=== PATIENT | male | born 1950 | race Caucasian/White ===

== ENCOUNTER 2018-12-18 05:30 | Day surgery (SDC) | payer MEDICARE, OTHER, SELFPAY ==
--- NOTE | 2018-11-21 09:35 | PCM.HP.BLA ---
History and Physical DATE OF SURGERY: 12/18/2018 SCHEDULED PROCEDURE: right knee arthroscopy with partial medial and lateral meniscectomy and chondroplasty HISTORY OF PRESENT ILLNESS: This is a 68-year-old male who has been having ongoing pain in his right knee since August 2018. At that time patient was stepping off backwards from a ladder when he landed awkwardly on the right knee. Since then he has had pain in the right knee with mechanical symptoms including locking and catching sensation. Patient denies previous problems in the right knee prior to the injury. Patient states his pain can reach as high as a 5/10. He is currently using a cane for ambulatory assistance. Patient has been through formal physical therapy and previous corticosteroid injection with no relief in symptoms. He states the corticosteroid injection only helped temporarily. Patient has a medical history pertinent for hypertension and type 2 diabetes mellitus. He denies any recent chest pain, shortness of breath, fevers chills, recent infections. After failing conservative measures the patient would like to proceed with a right knee arthroscopy with partial medial and lateral meniscectomy with chondroplasty. We are obtaining surgical clearance from patient's primary care physician. REVIEW OF SYSTEMS: ROS: Const: Reports weight change, but denies change in appetite and fever. CV: Denies chest pain, heart murmur and irregular heartbeat. Resp: Denies cough, pneumonia, shortness of breath, tuberculosis and wheezing. GI: Denies constipation, diarrhea, heartburn, nausea, rectal itching, bloody stools and vomiting. : Denies incontinence. Musculo: Reports pain, trouble walking and weakness, but denies gait disturbance and leg swelling. Skin: Denies Raynaud's, history of shingles and tattoo. Neuro: Denies ambulatory dysfunction, dizziness, numbness/tingling and tremor. Psych: Denies anxiety, insomnia and stress. Jairo/Lymph: Denies anemia, bleeding/bruising tendency and past transfusion. Reviewed and updated. PAST MEDICAL HISTORY: Advance Care Plan: No Advance Directives Effective Date: 10/10/2018 PMH: Medical Problems: Diabetes, High Blood Pressure, Hypercholesterolemia, Sleep Apnea Accidents: None Surgical Hx: None Anesthesia Complications: None Assistive Devices: Glasses, Cane, Cpap Reviewed and updated. SOCIAL HISTORY: SH: Marital: .Occupation: Retired.Work Status: Retired.Hand Dominance: Right-handed. Personal Habits: Cigarette Use: Never Smoked Cigarettes.Smokeless Tobacco: Never Used Smokeless Tobacco.E-Cigarette Use: Never used.Alcohol: Occasionally.Drug Use: Denies Use.Enjoy Exercising: Never Exercises. Reviewed, no changes. VITALS: Ht: 67.5 Wt: 281lb Wt k.462 BMI: 43.4 BP: 130/74 Pulse: 59 Resp: 28 T: 98.0 T: 36.7C ALLERGIES: No Known Drug Allergy MEDICATIONS: Ultram 50 mg 1-2 by mouth q6 hour as needed pain, Amlodipine Besylate/Benazepril Hydrochloride 5-40 mg 1 cap PO daily, Carvedilol 12.5 mg 1 tab PO daily, Dicyclomine HCL 20 mg 1 cap PO bid, Hydrochlorothiazide 12.5 mg 1 tab PO daily, Metformin HCL 500 mg 1 tab PO daily, Aspirin 81 mg 1 tab PO every other day, Multi Vitamin Daily 1 tab PO daily, Potassium 99 mg 1 tab by mouth daily, Calcium 1200 6372-5500 MG-Unit 1 tab by mouth daily, Vitamin D3 1000 Unit 1 by mouth every day, Vitamin C W/Vitamin E 500-400 MG-Unit 1 tab by mouth daily PRE-OP EXAM: General appearance:NORMAL Other: Eyes: Conjunctivae and lids: NORMAL Pupils: ERR Ears, Nose, Mouth, and Throat: NORMAL Other: Inspection of lips, teeth and gums: NORMAL Other: Neck: Examination of neck: no masses noted. Respiratory: Assessment of respiratory effort: NORMAL Other: Auscultation of lungs: clear to auscultation no wheezes, rhonchi or rales. Cardiovascular: Auscultation of heart: regular rate and rhythm, no murmurs, gallops or rubs. Gastrointestinal: Exam of abdomen: soft, nontender, nondistended bowel sounds present. PHYSICAL EXAMINATION: On exam of the right knee is cool to touch without erythema or signs of infection. There is mild effusion. Patient has primary pain over the medial right knee. Tenderness to palpation along the medial lateral joint line. Range of motion right knee: 0 of extension 115 flexion. Patient has positive Daily's examination which does reproduce his pain. Varus/valgus stress test, negative anterior/posterior drawer. Patient does walk with a limping gait. Sensation intact to light touch. Neurovascularly intact. IMAGING STUDIES: MRI was obtained at [facility] on November 11, 2018 which did not reveal any acute finding for fracture. Patient does have medial meniscus tear and lateral meniscus tear. He does have chondromalacia of the medial compartment with erosion appreciated. There is chondral malacia in the patellofemoral compartment. MRI was discussed and reviewed with Dr. Bradford Guzman. X-rays of the right knee were obtained on October 10, 2018 which does show medial joint space narrowing with osteophyte formation consistent with moderate osteoarthritis on the right knee. IMPRESSION: 1. Right knee pain with medial lateral meniscus tear 2. Right knee osteoarthritis 3. Type 2 diabetes mellitus 4. Hypertension 5. Hypercholesterolemia 6. Sleep apnea PLAN: I did discuss and review with the patient all treatment options including surgical versus nonsurgical options. Patient does wish to proceed with the above-stated procedure. Potential risks, benefits, and complications of the procedure were discussed in detail including but not limited to , infection, nerve and blood vessel damage, persistent pain, numbness, tingling, paresthesias, blood clot, pulmonary embolism, and requirement for possible further surgery. The patient expressed full understanding and has no further questions for the doctor. Patient does agree to proceed with the above-stated procedure and has signed the surgery consent form. We also discussed in length about possibility of postoperative pain due to his underlying osteoarthritis. However patient did not have any prior pain in his right knee before the injury. We are obtaining surgical clearance from patient's primary care physician. This dictation was created using voice recognition software. Phonetic and/or grammatical errors may exist.. ___ I have re-examined the patient. There are no clinical changes since date of exam. ___ See progress notes for changes. ___ Dictated on admission Date: Time: Signature:
[2018-12-18] VITALS (7 sets, daily range): BP systolic 157–180; BP diastolic 70–88; PULSE 48–62; RESP 16–18; TEMP 36.2–36.8; O2SAT 94–100; BMI 42.6
[2018-12-18 06:16] LABS: Bedside Glucose 155 mg/dL (70-110)
[2018-12-18] MEDS: Epinephrine (1 mg/ml) 1 MG/ML VIAL (07:45)
--- NOTE | 2018-12-18 08:11 | PCM.OPRPT ---
Report of Operation Date of Procedure: 12/18/18 Pre-Operative Diagnosis: 1. Right knee medial meniscus tear. 2. Right knee lateral meniscus tear. 3. Right knee chondromalacia Post-Operative Diagnosis: 1. Right knee medial meniscus tear. 2. Right knee lateral meniscus tear. 3. Right knee chondromalacia. 4. Right knee plica, medial Surgery/Procedure Performed:: Right knee arthroscopic. 1. Lateral and medial partial meniscectomies. 2. Medial compartment chondroplasty. 3. Medial plica resection Description of Surgical Findings:: See body of operative report key account representative: None Type of Anesthesia:: General Anesthesiologist: Felipe Cervantes Special Medications: 3 g Ancef Specimen's removed: none Estimated Blood Loss (mL): 10 Fluids Replaced: 800 mL crystalloid Description of Procedure: On the date of the procedure, the patient's R lower extremity was marked in the preoperative area. Patient was brought back to the operating room where they were transferred to the bed. Anesthesia assumed control of the C-spine airway and administered anesthetic. All bony prominences were identified and well-padded and the R leg was placed in the arthroscopic leg garcia. The contralateral leg was then draped over the bed and well-padded. There was padding underneath both sciatic nerves. The foot of the bed was then dropped and the R leg was prepped in a sterile fashion. The surgeon then scrubbed. Upon reentering the room, the operative leg was draped in a standard orthopedic fashion. A timeout was called, everyone agreed upon the side, the site, the procedure to be performed, patient's identity and antibiotics given. Incisions were marked out for the medial and lateral infrapatellar portals. Esmarch bandage was then used to exsanguinate the leg and tourniquet was placed at 250 mmHg. At this time, the lateral portal incision was made in a vertical fashion. The trocar was placed into the joint. The camera was then placed and the patellofemoral joint was visualized. The patella did appear to have grade 3 chondral changes. The trochlea appeared to have grade 4 chondral changes. We then directed our attention to the medial gutter where there was no foreign body. And directed our attention medially we noted a large medial plica. We then directed our attention to the medial joint compartment. There were mostly grade 2 and a central area of the posterior weightbearing surface a grade 4 chondral lesion with surrounding loose cartilage flaps the medial distal femur, grade 2-3 chondral changes on the medial tibial plateau. The medial meniscus had large posterior horn complex tear. The medial portal was then placed under direct visualization using a spinal needle an 11 blade scalpel. Once this was done a probe was placed in the joint and the meniscus was probed finding confirmation of the large posterior horn complex tear. The biters and vero were then used sequentially to debriding get rid of any free edges that could be a source of pain and catching in the meniscus tear. We were able to also use the shaver to debride the chondral flaps exposing the extent of the 1 cm x 1 cm grade 4 chondral malacia once we felt medial meniscus tear was adequately debrided, we again visualized the joint and noted the meniscus tear was adequately debrided. Attention was then turned towards the notch where the anterior cruciate ligament was intact. PCL was visualized and appeared intact. Attention was then directed towards the lateral compartment where the lateral distal femur had grade 2 chondral changes, the lateral proximal tibia had grade 2 chondral changes. The lateral meniscus had a cleavage tear. The biters and vero were then used sequentially to debriding get rid of any free edges that could be a source of pain and catching in the meniscus tear. We then directed our attention to the lateral gutter, which was visualized and no free bodies were noted. We then directed our attention back to the patellofemoral compartment where the shaver was placed in the medial plica was resected using the shaver. Once we did this we could see a full-thickness large area of lateral trochlear grade 4 erosion. At this time the wound was copiously irrigated out with normal saline with epinephrine. The wound was closed with 4-0 nylon and 0.5% Marcaine and epinephrine were injected for local anesthetic. Xeroform was placed over the incision. Sterile dressing was placed. Compressive dressing was placed. Tourniquet was let down. For that there was then placed up. Patient was awakened by anesthesia patient was transferred to the PACU for recovery in stable condition. Postoperative plan: Patient will be made weight-bear as tolerated. Return to activities as tolerated. He will come to the office in 2 weeks for postoperative wound check and suture removal. If he is doing well that time he can follow-up as needed. - Complications No intraoperative complications - Admit VTE Documentation VTE Present on Admission: No VTE Mechan Device Prophylaxis: SCD's VTE Pharm Prophylaxis ordered?: Yes
--- NOTE | 2018-12-18 08:17 | OP.PCM_ITS ---
Report of Operation Date of Procedure: 12/18/18 Pre-Operative Diagnosis: 1. Right knee medial meniscus tear. 2. Right knee lateral meniscus tear. 3. Right knee chondromalacia Post-Operative Diagnosis: 1. Right knee medial meniscus tear. 2. Right knee lateral meniscus tear. 3. Right knee chondromalacia. 4. Right knee plica, medial Surgery/Procedure Performed:: Right knee arthroscopic. 1. Lateral and medial partial meniscectomies. 2. Medial compartment chondroplasty. 3. Medial plica resection Description of Surgical Findings:: See body of operative report commercial producer: None Type of Anesthesia:: General Anesthesiologist: Felipe Cervantes Special Medications: 3 g Ancef Specimen's removed: none Estimated Blood Loss (mL): 10 Fluids Replaced: 800 mL crystalloid Description of Procedure: On the date of the procedure, the patient's R lower extremity was marked in the preoperative area. Patient was brought back to the operating room where they were transferred to the bed. Anesthesia assumed control of the C-spine airway and administered anesthetic. All bony prominences were identified and well- padded and the R leg was placed in the arthroscopic leg garcia. The contralateral leg was then draped over the bed and well-padded. There was padding underneath both sciatic nerves. The foot of the bed was then dropped and the R leg was prepped in a sterile fashion. The surgeon then scrubbed. Upon reentering the room, the operative leg was draped in a standard orthopedic fashion. A timeout was called, everyone agreed upon the side, the site, the procedure to be performed, patient's identity and antibiotics given. Incisions were marked out for the medial and lateral infrapatellar portals. Esmarch bandage was then used to exsanguinate the leg and tourniquet was placed at 250 mmHg. At this time, the lateral portal incision was made in a vertical fashion. The trocar was placed into the joint. The camera was then placed and the patellofemoral joint was visualized. The patella did appear to have grade 3 chondral changes. The trochlea appeared to have grade 4 chondral changes. We then directed our attention to the medial gutter where there was no foreign body. And directed our attention medially we noted a large medial plica. We then directed our attention to the medial joint compartment. There were mostly grade 2 and a central area of the posterior weightbearing surface a grade 4 chondral lesion with surrounding loose cartilage flaps the medial distal femur, grade 2-3 chondral changes on the medial tibial plateau. The medial meniscus had large posterior horn complex tear. The medial portal was then placed under direct visualization using a spinal needle an 11 blade scalpel. Once this was done a probe was placed in the joint and the meniscus was probed finding confirmation of the large posterior horn complex tear. The biters and evro were then used sequentially to debriding get rid of any free edges that could be a source of pain and catching in the meniscus tear. We were able to also use the shaver to debride the chondral flaps exposing the extent of the 1 cm x 1 cm grade 4 chondral malacia once we felt medial meniscus tear was adequately debrided, we again visualized the joint and noted the meniscus tear was adequately debrided. Attention was then turned towards the notch where the anterior cruciate ligament was intact. PCL was visualized and appeared intact. Attention was then directed towards the lateral compartment where the lateral distal femur had grade 2 chondral changes, the lateral proximal tibia had grade 2 chondral changes. The lateral meniscus had a cleavage tear. The biters and vero were then used sequentially to debriding get rid of any free edges that could be a source of pain and catching in the meniscus tear. We then directed our attention to the lateral gutter, which was visualized and no free bodies were noted. We then directed our attention back to the patellofemoral compartment where the shaver was placed in the medial plica was resected using the shaver. Once we did this we could see a full-thickness large area of lateral trochlear grade 4 erosion. At this time the wound was copiously irrigated out with normal saline with epinephrine. The wound was closed with 4- 0 nylon and 0.5% Marcaine and epinephrine were injected for local anesthetic. Xeroform was placed over the incision. Sterile dressing was placed. Ronda sive dressing was placed. Tourniquet was let down. For that there was then placed up. Patient was awakened by anesthesia patient was transferred to the PACU for recovery in stable condition. Postoperative plan: Patient will be made weight-bear as tolerated. Return to activities as tolerated. He will come to the office in 2 weeks for postoperative wound check and suture removal. If he is doing well that time he can follow-up as needed. - Complications No intraoperative complications - Admit VTE Documentation VTE Present on Admission: No VTE Mechan Device Prophylaxis: SCD's VTE Pharm Prophylaxis ordered?: Yes
[2018-12-18] MEDS: Ketorolac 30 MG/ML Syringe IV (08:50)
[2018-12-18 08:51] LABS: Bedside Glucose 133 mg/dL (70-110)
== END 2018-12-18 10:36 | disposition home or self-care (01) ==
LOC: SDC 05:31 → AC 05:31
PROVIDERS: Family Provider Family Medicine; PCP Family Medicine; Referring Provider Specialist; Visit Provider Specialist
PROC: (CPT 29870; principal; 2018-12-18 06:55)
DX: S83.231A Complex tear of medial meniscus, current injury, right knee, initial encounter (principal); S83.281A Other tear of lateral meniscus, current injury, right knee, initial encounter; M94.261 Chondromalacia, right knee; M17.11 Unilateral primary osteoarthritis, right knee; E11.9 Type 2 diabetes mellitus without complications; I10 Essential (primary) hypertension; E78.00 Pure hypercholesterolemia, unspecified; G47.30 Sleep apnea, unspecified; Z79.84 Long term (current) use of oral hypoglycemic drugs; Z79.891 Long term (current) use of opiate analgesic; Z79.899 Other long term (current) drug therapy; X50.0XXA Overexertion from strenuous movement or load, initial encounter; Y93.89 Activity, other specified; Y92.89 Other specified places as the place of occurrence of the external cause; Y99.8 Other external cause status
CPT/HCPCS: 29880; 82962; J7120

== ENCOUNTER → 2019-06-13 19:55 | Outpatient (CLI) | payer MEDICARE, OTHER, SELFPAY ==
[2018-12-18 05:44] VITALS: BMI 42.6
== END ==
PROVIDERS: Family Provider Family Medicine; PCP Family Medicine; Referring Provider Family Medicine; Visit Provider Family Medicine
DX: G47.33 Obstructive sleep apnea (adult) (pediatric) (principal)
CPT/HCPCS: 95811

== ENCOUNTER 2020-01-16 14:42 | Emergency (ER) | payer MEDICARE, OTHER, SELFPAY ==
[2018-12-18 05:44] VITALS: BMI 42.6
[2020-01-16 14:43] VITALS: BP 158/94; PULSE 64; RESP 18; TEMP 36.6; O2SAT 97; BMI 41.1
--- NOTE | 2020-01-16 15:10 | RAD_ITS ---
STUDY: X-RAY - RIGHT HAND, ATTENTION RIGHT THUMB REASON FOR EXAM: Male, 69 years old. LACERATION ON DISTAL 1ST DIGIT TECHNIQUE: 3 view(s) of the finger were obtained. COMPARISON: None. FINDINGS: Normal metacarpal head. Normal metacarpophalangeal joint. Normal proximal phalanx. Normal distal phalanx. There is mild degenerative arthrosis of the distal interphalangeal joint. Soft tissue laceration overlying the tuft of the distal phalanx. No bony abnormality is seen. RAD/Finger(s) Min 2 Views IMPRESSION: Soft tissue laceration overlying the tuft of the distal phalanx. No bony abnormality is seen. Electronically Signed: Filemon Serra, at 15:31 EDT , Service support ,
[2020-01-16] MEDS: Diphth,Pertuss(Acell),Tet Vac 0.5 ML Vial IM (15:12)
--- NOTE | 2020-01-16 15:13 | ED.VISSUMM ---
- ER Visit Summary Date of Service: 01/16/20 Chief Complaint: Laceration History of Present Illness: The patient is a 69 M who cut his right thumb on a table saw just prior to arrival. He is right-hand dominant. Unsure of his tetanus status. Physical Examination: There is a 3 cm laceration over his distal right thumb in the sagittal orientation it does disrupt just the corner of his nail bed, but otherwise his nail is intact. The volar end does show some skin avulsion. This does not involve the joint. Otherwise exam unremarkable. Test Results: X-rays performed. Emergency Department Course and Treatment: Tetanus updated. Will check x-rays for fracture. Will repair. X-rays negative for bony involvement. The block was performed by me. 4 cc of lido total. Landmarks palpated. Negative aspiration. Anesthesia was achieved. 3 simple interrupted sutures were placed. There was some macerated and avulsed tissue which could not be replaced or approximated. Risks were discussed including prolonged healing and infection. Patient will return right away with any complications, otherwise follow-up with Dr. Griffith. Treatment Plan: As above Disposition: Discharge Impression: Right thumb laceration 3 cm, initial encounter This note was generated with [email or web address] dictation software. It may contain incorrect words, spelling, and punctuation that were not noted in review of the chart prior to signing ED Disposition - Plan for ED Patient: Referrals: Martinez Kent MD [Primary Care Provider] -
--- NOTE | 2020-01-16 16:08 | ED.DEP ---
ED Disposition - Plan for ED Patient: Instructions: ED Laceration Hand Referrals: Hunter Griffith MD [STAFF PHYSICIAN] -
[2020-01-16 16:23] VITALS: PULSE 60; RESP 16; O2SAT 99
== END 2020-01-16 16:25 | disposition home or self-care (01) ==
LOC: ED 15:32
PROVIDERS: Emergency Provider Emergency Medicine; PCP Family Medicine
DX: S61.111A Laceration without foreign body of right thumb with damage to nail, initial encounter (principal); Z23 Encounter for immunization; E11.9 Type 2 diabetes mellitus without complications; I10 Essential (primary) hypertension; Z87.891 Personal history of nicotine dependence; Z79.82 Long term (current) use of aspirin; Z79.84 Long term (current) use of oral hypoglycemic drugs; Z79.899 Other long term (current) drug therapy; W29.3XXA Contact with powered garden and outdoor hand tools and machinery, initial encounter; Y93.89 Activity, other specified; Y92.89 Other specified places as the place of occurrence of the external cause; Y99.8 Other external cause status
CPT/HCPCS: 12002; 73140; 90471; 90715; 99284

== ENCOUNTER 2020-09-15 13:14 | Outpatient (RCR) | payer MEDICARE, OTHER, SELFPAY ==
[2020-02-18 08:35] VITALS: BMI 41.1
== END 2020-09-15 23:59 ==
LOC: IMMUN 13:14
PROVIDERS: PCP Family Medicine; Visit Provider Family Medicine
DX: Z23 Encounter for immunization (principal)
CPT/HCPCS: 0011A; 0012A; 91301

== ENCOUNTER → 2023-01-01 | Outpatient (CLI) | payer MEDICARE, OTHER, SELFPAY ==
[2023-01-01 12:03] LABS: Absolute Lymphocyte Count 1.44 X10^3/uL (0.83-4.51); Absolute Neutrophil Count 3.1 X10^3/uL (2.0-7.7); Basophil# 0.03 X10^3/uL; Basophil% 0.6 % (0-1); Eosinophil# 0.13 X10^3/uL; Eosinophils% 2.5 % (0-5); Hematocrit 40.4 % (40-54); Lymphocyte # 1.44 X10^3/ul (0.83-4.51); Lymphocyte % 27.4 % (19-41); Mean Corp Hgb Conc 34.7 g/dL (32-36); Mean Corpuscular Hgb 30.9 pg (27.0-32.0); Mean Corpuscular Volume 89.2 fL (80-94); Mean Platelet Vol. 9.4 fl (6.2-12.0); Monocyte# 0.53 X10^3/uL; Monocyte% 10.1 % (0-10); NRBC Flagged by Analyzer 0 % (0-5); Neutrophil # 3.12 X10^3/uL (2.7-7.7); Neutrophil % 59.2 % (47-70); Platelet Count 170 K/mm3 (150-450); RBC Distribution Width CV 12.3 % (11.6-14.6); RBC Distribution Width SD 40.4 fl (35.1-43.9); Red Blood Count 4.53 M/mm3 (4.6-6.2); White Blood Count 5.3 K/mm3 (4.4-11.0)
[2023-01-01 12:12] LABS: Albumin, Serum 3.7 g/dL (3.2-5.0); Anion Gap 3 (5-15); BUN 16 mg/dL (7-18); BUN/Creat Ratio 16.9 RATIO (10-20); Calcium,Total 9.2 mg/dL (8.5-10.1); Chloride 104 mmol/L (98-107); Creatinine, Serum 0.94 mg/dL (0.70-1.30); EST Glomerular Filtration Rate 84 mL/min (>60); Est Glom Filt Rate - Afr Amer 101 mL/min (>60); Glucose 154 mg/dL (74-106); Potassium 3.9 mmol/L (3.5-5.1); Sodium Level 135 mmol/L (136-145)
== END | disposition home or self-care (01) ==
LOC: MTLAB 10:15
PROVIDERS: PCP Family Medicine; Referring Provider Specialist; Visit Provider Specialist
DX: I10 Essential (primary) hypertension (principal)
CPT/HCPCS: 36415; 80048; 82040; 83036; 85025

== ENCOUNTER → 2023-04-17 | Outpatient (CLI) | payer MEDICARE, OTHER, SELFPAY ==
--- NOTE | 2023-04-17 08:22 | CT_ITS ---
EXAM: CT LEFT LOWER EXTREMITY WITHOUT INTRAVENOUS CONTRAST CLINICAL INDICATION: VARUS DEFORMITY. se robot TECHNIQUE: Helically acquired images were obtained of the left lower extremity without intravenous contrast. 2-D reformats were performed by the technologist. CTDIvol = ( 18.97 ) mGy, DLP = ( 1312.23 ) mGycm This CT exam was performed using one or more of the following dose reduction techniques: automated exposure control, adjustment of the mA and/or kV according to patient size, and/or use of iterative reconstruction technique. COMPARISON: No relevant prior studies available. FINDINGS: BONES/JOINTS: Moderate to severe medial femorotibial compartment osteoarthrosis. Ossification involving the area of the superficial deltoid ligamentous complex fibers. Large posterior calcaneal enthesophyte. Small amount of suprapatellar joint fluid. No acute or healing fracture or malalignment. No unusual lytic or sclerotic lesions of bone. SOFT TISSUES: Fat-containing left inguinal hernia. No soft tissue swelling or gas. No radiopaque foreign body. VASCULATURE: Peripheral vascular calcification posteriorly. CT/Extremity Lower without Contra IMPRESSION: 1. Preoperative planning study. 2. Moderate to severe medial femorotibial compartment osteoarthrosis. 3. Ancillary findings as above. Electronically Signed: Johnathan Hunter MD at 2:11 EDT ,
== END | disposition home or self-care (01) ==
LOC: CT 08:21
PROVIDERS: PCP Family Medicine; Referring Provider Specialist; Visit Provider Specialist
DX: M21.162 Varus deformity, not elsewhere classified, left knee (principal)
CPT/HCPCS: 73700

== ENCOUNTER 2023-05-09 12:15 | Observation (INO) | payer MEDICARE, OTHER, SELFPAY ==
[2023-04-17 10:11] LABS: Absolute Lymphocyte Count 1.67 X10^3/uL (0.83-4.51); Absolute Neutrophil Count 3.2 X10^3/uL (2.0-7.7); Basophil# 0.03 X10^3/uL; Basophil% 0.5 % (0-1); Eosinophil# 0.16 X10^3/uL; Eosinophils% 2.8 % (0-5); Hematocrit 40.1 % (40-54); Hemoglobin 13.6 g/dL (13.0-16.5); Lymphocyte # 1.67 X10^3/ul (0.83-4.51); Lymphocyte % 28.8 % (19-41); Mean Corp Hgb Conc 33.9 g/dL (32-36); Mean Corpuscular Hgb 30.3 pg (27.0-32.0); Mean Corpuscular Volume 89.3 fL (80-94); Mean Platelet Vol. 9.5 fl (6.2-12.0); Monocyte# 0.73 X10^3/uL; Monocyte% 12.6 % (0-10); NRBC Flagged by Analyzer 0 % (0-5); Neutrophil # 3.19 X10^3/uL (2.7-7.7); Platelet Count 195 K/mm3 (150-450); RBC Distribution Width SD 39.2 fl (35.1-43.9); Red Blood Count 4.49 M/mm3 (4.6-6.2); White Blood Count 5.8 K/mm3 (4.4-11.0)
[2023-04-17 10:50] LABS: Albumin, Serum 3.6 g/dL (3.2-5.0); Anion Gap 4 (5-15); BUN 14 mg/dL (7-18); BUN/Creat Ratio 13.7 RATIO (10-20); Chloride 104 mmol/L (98-107); Creatinine, Serum 1.02 mg/dL (0.70-1.30); EST Glomerular Filtration Rate 77 mL/min (>60); Est Glom Filt Rate - Afr Amer 93 mL/min (>60); Glucose 145 mg/dL (74-106); Potassium 3.8 mmol/L (3.5-5.1); Sodium Level 139 mmol/L (136-145)
[2023-04-17 10:52] LABS: Hemoglobin A1c 7.2 % (3.8-5.6)
[2023-04-17 11:01] LABS: Magnesium 2.1 mg/dL (1.6-2.6)
--- NOTE | 2023-05-01 21:38 | HP.PCM_ITS ---
History and Physical History and Physical? Patient Name: Sylvester Martino : 1950 From:? LETA AQUINO PA-C? DATE OF PRE-OPERATIVE EXAM: 04/30/2023 DATE OF SURGERY:? 05/09/2023 SCHEDULED PROCEDURE:? Left total knee arthroplasty HISTORY OF PRESENT ILLNESS: Dictating on a 73-year-old male who is had ongoing pain in the left knee for over 4 years.? Patient's pain is been intermittent, aching, stabbing.? Pain is increased with going up and down stairs, driving and walking.? Patient does have start up pain.? Pain can reach 8/10 with activities.? Pain does not awaken him at night.? He has fallen secondary to the pain.? He feels unsafe climbing ladders.? Pain is located over the medial joint line.? He also has increased pain in his right knee.? Patient has tried conservative measures including rest with no relief as well as oral medications including Tylenol and ibuprofen.? He has had previous surgery on the right knee but denies surgery on the left knee.? He has attempted bracing.? Patient has had previous corticosteroid injection on the right knee.? He has not had a recent injection for the left knee.? Initially he had elevated A1c greater than 7.5 and was managed by his PCP.? His A1c is currently 7.2.? After failing conservative measures and discussing all treatment options with Dr. Bradford Guzman patient does wish to proceed with left total knee arthroplasty he is also scheduled to have a staged right total knee arthroplasty in the future.? He currently denies any chest pain, shortness of breath, fevers chills or recent infections.? We have obtain surgical clearance from the primary care physician Dr. Kent.? Patient has medical history pertinent for hypertension, type 2 diabetes mellitus, hypercholesterolemia, sleep apnea with use of CPAP, and gastroesophageal reflux disease.? He denies past history of DVT or pulmonary embolism. REVIEW OF SYSTEMS: Review Of Systems: Constitutional: Reports weight change, but denies change in appetite and fever. Cardiovasular: Denies chest pain, heart murmur and irregular heartbeat. Respiratory: Denies cough, pneumonia, shortness of breath, tuberculosis and wheezing. Gastrointestinal: Denies constipation, diarrhea, heartburn, nausea, rectal itching, bloody stools and vomiting. Genitourinary: Denies incontinence. Musculoskeletal: Reports pain, trouble walking and weakness, but denies gait disturbance and leg swelling. Skin: Denies Raynaud's, history of shingles and tattoo. Neurological: Reports tremor but denies ambulatory dysfunction, dizziness and numbness/tingling. Psychiatric: Denies anxiety, insomnia and stress. Hematologic/Lymphatic: Denies anemia, bleeding/bruising tendency and past transfusion. Reviewed and updated. PAST MEDICAL HISTORY: Advance Care Plan: No Advance Directives Effective Date: 10/10/2018 Past Medical History: Medical Problems: Diabetes, High Blood Pressure, Hypercholesterolemia, Sleep Apnea, Acid Reflux Accidents: None Surgical Hx: RT Knee Arthroscopy - (12/18/2018) SAW @ [facility] Anesthesia Complications: None Assistive Devices: Glasses, Cane, Cpap Reviewed and updated. SOCIAL HISTORY: Social History: Marital: .Occupation: Retired.Work Status: Retired.Hand Dominance: Right- handed. Personal Habits:? Cigarette Use: Never Smoked Cigarettes.Smokeless Tobacco: Never Used Smokeless Tobacco.E-Cigarette Use: Never used.Alcohol: Occ asionally.Drug Use: Denies Use.Enjoy Exercising: Never Exercises. Reviewed and updated. VITALS: Ht: 68 Wt: 253lb Wt k.761 BMI: 38.5 BP: 128/82 Pulse: 50 Resp: 13 T: 97.3 T: 36.3C Pain Level: 3 O2SatR: 97 ALLERGIES: Statins - Muscle Pain? MEDICATIONS: Mupirocin 2 % use qtip and apply inside each nostril twice a day until the day of surgery, Carvedilol 25 mg one tab PO bid, Hydrochlorothiazide 50 mg 1 tab PO daily, Metformin HCL 500 mg 1 tab PO daily, Aspirin 81 mg 1 tab PO every other day, Calcium 1200 4295-4351 MG-Unit 1 tab by mouth daily, Vitamin D3 1000 Unit 1 by mouth every day, Omeprazole 20 mg one cap PO once daily, Magnesium 500 mg one cap PO once daily, Vitamin B12 1000 mcg one tab PO once daily, Amlodipine Besylate/Benazepril HCL 5-40 mg 1/day, Centrum Silver Adult 50+ Adult 50 1/day, Potassium Gluconate 80 mg 1/day, Quercetin 250 mg 1/day 500mg+C of 1400mg PRE-OP EXAM:? General appearance:NORMAL? ? ? Other: Eyes: Conjunctivae and lids: NORMAL? Pupils: ERR Ears, Nose, Mouth, and Throat: NORMAL? Other: Inspection of lips, teeth and gums: NORMAL? ?Other: Neck: Examination of neck: no masses noted. Respiratory: Assessment of respiratory effort: NORMAL? ?Other: ?Auscultation of lungs: clear to auscultation no wheezes, rhonchi or rales. Cardiovascular:? Auscultation of heart: regular rate and rhythm, no murmurs, gallops or rubs. PHYSICAL EXAMINATION: Patient does walk with an antalgic gait.? Left knee is without erythema or signs of infection.? He has moderate effusion.? There is tenderness to palpation along the medial joint line and lateral joint line.? Range of motion: 0 extension to 112 flexion.? Stable to anterior/posterior drawer exam with firm endpoint.? He has varus alignment which is correctable on exam.? Sensation intact to light touch. IMAGING STUDIES: Previous left knee x-rays reveal varus alignment with medial joint space narrowing, subchondral sclerosis, osteophyte formation consistent with moderate to severe stage III-IV osteoarthritis. IMPRESSION: 1.? Moderate to severe left knee osteoarthritis 2.? Severe right knee osteoarthritis 3.? Hypertension 4.? Type 2 diabetes mellitus 5.? Hypercholesterolemia 6.? Sleep apnea with use of CPAP 7.? Gastroesophageal reflux disease PLAN: Dr. Bradford Guzman did discuss and review with the patient all treatment options including surgical versus nonsurgical options.? Patient does wish to proceed with the above-stated procedure.? Potential risks, benefits, and complications of the procedure were discussed in detail including but not limited to , infection, nerve and blood vessel damage, persistent pain, numbness, tingling, paresthesias, blood clot, pulmonary embolism, and requirement for possible further surgery.? The patient expressed full understanding and has no further questions for the doctor.? Patient does agree to proceed with the above-stated procedure and has signed the surgery consent form. POST-OP MEDICATION PLAN: Pain Medications: Due to the patient's elevated A1c at 7.2 and positive screening for staph we will use doxycycline postoperatively for 2 weeks.? He was instructed on this medication making him more sensitive to the sunlight and should take appropriate precautions.? Also recommended probiotics while taking this antibiotic. DVT Prophylaxis:? Aspirin 81 mg twice daily for 4 weeks postoperatively.? Denies past history of DVT or pulmonary embolism This dictation was created using voice recognition software. Phonetic and/or grammatical errors may exist. ___? I have re-examined the patient.? There are no clinical changes since date of exam. ___? See progress notes for changes. ___? Dictated on admission Date: ? ? ?Time: Signature:
[2023-05-09] VITALS (13 sets, daily range): BP systolic 137–177; BP diastolic 65–124; PULSE 47–61; RESP 16–97; TEMP 36.1–36.9; O2SAT 16–99; BMI 40.0
[2023-05-09] MEDS: Lactated Ringers 1,000 ML 999 ML IV ×2 (07:49→12:40)
[2023-05-09] MEDS: Insulin Lispro 100 UNIT/ML INSULN.PEN SC (07:49)
[2023-05-09] MEDS: Celecoxib 200 MG Capsule 400 MG PO (07:51)
[2023-05-09] MEDS: Acetaminophen 500 MG Tablet 1000 MG PO ×3 (07:51→21:07)
[2023-05-09] MEDS: Gabapentin 600 MG Tablet PO (07:51)
[2023-05-09] MEDS: Magnesium 1 GM over 15 mins IV (07:52)
[2023-05-09] MEDS: Vancomycin HCl 1,750 MG in 0.9% Normal Saline (500mL Bag) 500 ML 250 MG IV (08:07)
[2023-05-09 08:24] LABS: Bedside Glucose 206 mg/dL (74-106)
--- NOTE | 2023-05-09 09:28 | OP.PCM_ITS ---
Report of Operation Date of Procedure: 05/09/23 Pre-Operative Diagnosis: Left knee primary osteoarthritis Post-Operative Diagnosis: Left knee primary osteoarthritis Surgery/Procedure Performed:: Left knee minimally invasive robotic assisted total knee replacement Description of Surgical Findings:: Stable knee with good patella tracking Surgeon: Bradford Guzman actimize architect: Lui sArmando Nichole Type of Anesthesia: Spinal Anesthesiologist: Felipe Cervantes Special Medications: 2 g Ancef, 1 g TXA at incision, 1 g TXA closure, 10 mg Decadron, joint cocktail (5 mg Duramorph, 30 mL of 0.5% Ropivicaine, 1000 units of epinephrine, 30 mg of Toradol) Specimen's removed: Bony cuts Estimated Blood Loss (mL): 50 Fluids Replaced: 1200 ml Description of Procedure: Implants used: 1. Vicky size 5 triathlon cruciate retaining distal femoral press-fit component 2. Inman size 6 press-fit tritanium tibial baseplate 3. Vicky X3 9 mm CS polyethylene 4. Inman X3 38 mm asymmetric patella Brief history operative indications: 73-year-old m with history of left knee osteoarthritis with radiographic findings with loss of joint space, osteophyte formation and subchondral sclerosis. Failed conservative measures as mentioned in the H&P. Discussion of total knee arthroplasty as well as risk and benefits were discussed the patient including but not limited to blood loss, DVTs, PEs, neurovascular damage, gener al risk of anesthesia including loss of life, and stiffness or instability were discussed with patient. Patient demonstrated understanding and was able to sign informed consent. Procedure: On the date of procedure patient's left lower extremity was marked in the preoperative area. The patient was then taken back to the operating room where the patient was placed on the table in the supine position. All bony prominences were identified a well-padded. Anesthesia assumed control of the C-spine and airway and remained controlled throughout the remainder of the procedure. A tourniquet was placed on the left upper thigh and the leg was prepped in a sterile fashion. The surgeon then scrubbed at this time .Upon reentering the room left lower extremity was draped in a standard orthopedic fashion. A timeout was then called and everyone agreed upon the side, the site, the procedure to be performed, patient's identity and antibiotics given. Esmarch bandage was used to exsanguinate the extremity and the tourniquet was placed up to 250 mmHg with the knee in flexion. A midline skin incision was made and sharp dissection was taken down through skin subcutaneous tissue and fat. The standard medial parapatellar incision was made and the patella was subluxed laterally. An Appropriate deep MCL release was done and the fat pad was resected. Our attention was then directed to the patella. The patella was everted and a flat resection was made. The knee was then flexed up in 2 femoral pins were placed inside the incision and 2 tibial pins were placed outside the incision in the medial tibia bi cortically. Once this was completed the 2 checkpoints in the femur and tibia were placed. Knee was then flexed up and the bony landmarks were registered. Once this was completed knee was taken through range of motion and manually stressed allowing us to a plan for an appropriate tibial cut. The robotic arm was brought into the field sterilely and checkpoint and saw were registered. Based on the patient's deformity the tibial cut was made neutral to the tibial axis. At this time the tensioner was then placed in the joint and ligament tension was checked at 90 degrees and full extension. Based on the patient's ligamentous tension appropriate adjustments were made to the operative plan and ligament releases were done. Once we were happy with our operative plan with balanced flexion and extension gaps our attention was directed to the femur. The robot was brought into the field sterilely and registered. Posterior condylar cuts, anterior chamfer cuts and anterior cuts were appropriately made for a size 5 femur. When these were completed the saws were switched out in the distal femoral and posterior chamfer cuts were made. Protecting the soft tissue throughout this time. A size 6 tibial base plate was selected. the knee was flexed to 90 degrees and the soft tissues and posterior osteophytes were removed from the joint. 40 cc of the periarticular injection was injected into the posterior medial corner of the joint. The appropriate trials were then placed on the femur and tibia. A trial polyethylene was trialed to ensure proper balancing and stability of the knee. The appropriate tibial internal rotation was then marked with a bovie. Our attention was then directed to the patella. The lug holes were drilled and the patella trial was placed. Patellar tracking was checked and deemed appropriate. Once we were happy lug holes were drilled for the femur and trial components were removed. the tibia was subluxed and pinned into place and the keel was punched and drilled appropriately. Final components were verified and opened, and cement was mixed in a vacuum. [employer] Simplex cement was used. The wound was copiously irrigated with normal saline. When the cement was ready the components were impacted into place starting with the tibia, femur and finally cementing the patella. The trial poly component was placed and the knee was placed in full extension. All excess cement was removed in the process. Once the cement had cured the tracking, alignment and balance were verified and a size 9 mm CS polyethylene component was placed. Once the final components were placed a 3-minute dilute Betadine lavage was performed followed by an Irrisept lavage was performed and the wound was copiously irrigated with normal saline solution and the periarticular injection was given. The wound was closed in a layer meng fashion using #1 vicryl interrupted sutures for the arthrotomy, 2-0 interrupted Vicryl suture for the subcuticular layer and joel for final skin closure. A sterile compressive dressing was then placed. The patient was then awakened from anesthesia, transferred to the [facility] and transferred to the PACU for recovery. Post op plan DVT ppx: ASA 81mg BID, thigh high compression stockings Follow up: in office in 2 weeks for wound check PT: to start POD #0 at hospital, outpatient PT should be arranged. Due to patient's high risk nature they will be placed on an extended oral antibiotic regimen: Doxycycline 100 mg p.o. twice daily for infection prevention. BMI greater than 40 My physician fitter's assistant was a vital part of this case. He was important in appropriate retraction during the case, and protection of soft tissues during bony cuts. His intimate knowledge of the case and my steps aided in safe and expedient completion of the procedure as well as appropriate position of the leg during the case. He was also vital in assisting with closure under my direct supervision. Due to the complexity of this case robotic arm was used to assist in the surgery to improve accuracy and clinical outcomes. Complications No intraoperative complications Admit VTE Documentation VTE Present on Admission: No VTE Mechan Device Prophylaxis: SCD's and Thigh High JAY Hose VTE Pharm Prophylaxis ordered?: Yes
--- NOTE | 2023-05-09 09:30 | KNEE_PTH ---
PATIENT: VICENTE SUAREZ LOC: MS3 U#:[id number] AGE/SX: 73/M ROOM: DC319 RE05/09/[address]: Dr. Bradford Guzman MD : 1950 BED: 1 DIS: 05/10/2023 SPEC #: [id number] RECD: 05/09/23 15:13 STATUS: KM REQ #: [id number] FERN: 05/09/23 09:[address]: Bradford Guzman DEPT: SURGICAL PATHOLOGY RECD BY: Wendy Gupta ENTERED: 05/10/23 08:44 SP TYPE: TOTAL KNEE OTHR DR: MD Dr. Tomeka Jovel MD Tissues: Knee, NOS Procedures: Decalcification bone/plaque Surgery Specimen Level IV HEADER OPERATION: ERAS, total knee replacement robotic arm assist PRE-OP DIAGNOSIS: Left knee primary osteoarthritis TISSUE SUBMITTED: Left knee bone and tissue MICROSCOPIC DIAGNOSIS Bone and tissue, left knee, total knee replacement/resection: Pieces of bone with degenerative osteoarthritic changes. Fibroadipose tissue, fibroconnective tissue and reactive synovial tissue. CLARA:martina 05/16/2023 MICROSCOPIC DESCRIPTION Slides are reviewed. GROSS DESCRIPTION Received is one container designated bone and soft tissue left knee. The specimen consists of multiple fragments of breaux-yellow bone measuring in aggregate 16.0 x 10.0 x 1.7 cm. Also in the specimen container are multiple fragments of yellow-white soft tissue measuring in aggregate 5.0 x 2.0 x 1.0 cm. A number of bony fragments contain articular surfaces consistent with tibial plateau and femoral condyle and displaying prominent osteophyte formation, eburnation and bone erosion. Clay Preparation Supervisor sections are submitted in two cassettes as follows: 1 - soft tissue, 2 - bone after decalcification. / AM:martina 05/10/2023 TC:5 CPT: 11710, 21911
[2023-05-09] MEDS: Cefazolin 2 GM in 0.9% Normal Saline (100mL Bag) 100 ML IV (10:48)
[2023-05-09] MEDS: TXA 1000mg in NS100 100ml (IVPB at Incision) 660 MG IV (11:00)
[2023-05-09] MEDS: JPS (Morphine 10mg/ml) OPERA.SITE (11:55)
[2023-05-09] MEDS: TXA 1000mg in NS100 100ml (IVPB at Closure) 660 MG IV (11:58)
--- NOTE | 2023-05-09 12:40 | RAD_ITS ---
STUDY: X-RAY - LEFT KNEE REASON FOR EXAM: Male, 73 years old. Post op -- AP and Lateral xray of operative knee in PACU. TECHNIQUE: 2 views of the left knee. COMPARISON: None. FINDINGS: There are new postoperative changes related to left total knee arthroplasty with patellar resurfacing. There is a vertical staple line along the anterior aspect of the knee. There is gas in the patellofemoral joint recess and anterior soft tissues, compatible with recent surgery. The orthopedic hardware components are intact. There is no periprosthetic fracture. Normal proximal tibiofibular articulation. RAD/Knee 1 or 2 Views IMPRESSION: New postoperative changes related to left total knee arthroplasty. Electronically Signed: Rudi Farley MD at 12:54 EDT ,
[2023-05-09 13:09] LABS: Bedside Glucose 164 mg/dL (74-106)
[2023-05-09] MEDS: Carvedilol 25 MG Tablet PO (16:19)
[2023-05-09] MEDS: Aspirin 81 MG TAB.CHEW PO (16:20)
[2023-05-09] MEDS: Cefazolin 1 GM/50 ML BAG IV (18:04)
[2023-05-09] MEDS: 0.9% Normal Saline (250mL Bag) 250 ML 15 ML IV (18:04)
--- NOTE | 2023-05-09 18:05 | PN.HOSP_ITS ---
Subjective Subjective Seven 3-year-old male presents to the hospital for elective left total knee replacement. His medical history is stable and he has had no recent changes to his medications. Objective Data Objective Data Vital Signs: Vital Signs Temp Pulse Resp BP Pulse Ox O2 Del Method O2 Flow Rate 97.8 F 57 L 18 148/70 H 95 Room Air 4 05/09/23 18:01 05/09/23 18:01 05/09/23 18:01 05/09/23 18:01 05/09/23 18:01 05/09/23 18:01 05/09/23 15:14 Oxygen Flow Rate (L/min) 4 Oxygen Delivery Method Room Air Weight: 255 lb 11.779 oz Body Mass Index (BMI) 40.0 Intake & Output: Intake and Output for Last 24 Hours 05/08/23 05/09/23 05/10/23 03:59 03:59 03:59 Intake Total 2967 / 2967 Balance 2967 / 2967 Lab / Micro Data 04/17/23 08:58 04/17/23 08:58 Labs: Laboratory Results - last 24 hr 05/09/23 07:37: POC Glucose 206 H 05/09/23 12:51: POC Glucose 164 H Micro: Microbiology 04/17/23 08:58 Swab (Method) Nasal Screen MRSA/MSSA - Final Radiography Diagnostic Testing: Radiology Impression Knee X-Ray 05/09/23 12:40 IMPRESSION: New postoperative changes related to left total knee arthroplasty. Electronically Signed: Rudi Farley MD at 12:54 EDT , Physical Exam Const alert, oriented x3 and no apparent distress General Appearance: cooperative HEENT normocephalic and moist oral mucous membranes Eyes PERRL, EOMs intact bilaterally and conjunctivae normal Neck supple and no JVD Resp normal respiratory effort, no retractions, no use of accessory muscles and clear to auscultation bilaterally Resp Narrative: Diminished Auscultation: Negative for crackles, rales, rhonchi or wheezes Cardio regular rate, regular rhythm, S1 normal heart sound, S2 normal heart sound and n o murmurs GI soft to palpation, non-tender and non-distended; Negative for hepatosplenomegaly Extremity no clubbing, cyanosis or edema Skin Skin Narrative: Dressing CDI Neuro no focal motor deficits and no sensory deficits noted Psych affect normal Appearance: appropriate Assessment & Plan Assessment/Plan (1) Status post total left knee replacement: PLAN: Plan 1. Status post left total knee replacement on 05/09/2023 ? Pain management from primary ? PT/OT ? Discharge planning per primary 2. HTN/HLD ? Blood pressures are stable we will monitor ? Resume his home blood sugar medication we will monitor renal function in the morning as he is on hydrochlorothiazide and an MARCIAL inhibitor 3. DM2 ? Stable ? Will place him on a carb controlled diet and continue with his metformin ? Accu-Cheks ACHS, can place on a sliding scale insulin if necessary 4. GERD ? Stable ? Continue with PPI DVT: Aspirin twice daily Charges/Coding Visit Charges Office Visits / Consults: [id number] OV L3 New
--- NOTE | 2023-05-09 19:57 | CPS ---
pt has own cpap set up in room
[2023-05-09 21:58] LABS: Bedside Glucose 274 mg/dL (74-106)
[2023-05-10 01:34] VITALS: BP 152/72; PULSE 53; RESP 16; TEMP 37; O2SAT 96
[2023-05-10] MEDS: Cefazolin 1 GM/50 ML BAG IV (02:27)
[2023-05-10] MEDS: Acetaminophen 500 MG Tablet 1000 MG PO ×2 (05:13→13:57)
[2023-05-10 05:34] VITALS: BP 152/76; PULSE 57; RESP 16; TEMP 36.6; O2SAT 97
[2023-05-10 06:30] LABS: Bedside Glucose 188 mg/dL (74-106)
[2023-05-10 06:44] LABS: Hematocrit 36.1 % (40-54); Hemoglobin 12.4 g/dL (13.0-16.5); Mean Corp Hgb Conc 34.3 g/dL (32-36); Mean Corpuscular Hgb 30.9 pg (27.0-32.0); Mean Platelet Vol. 9.1 fl (6.2-12.0); Platelet Count 168 K/mm3 (150-450); RBC Distribution Width CV 12.2 % (11.6-14.6); Red Blood Count 4.01 M/mm3 (4.6-6.2); White Blood Count 12.6 K/mm3 (4.4-11.0)
[2023-05-10 07:21] LABS: Anion Gap 5 (5-15); BUN 17 mg/dL (7-18); BUN/Creat Ratio 18.1 RATIO (10-20); Calcium,Total 8.5 mg/dL (8.5-10.1); Chloride 106 mmol/L (98-107); Creatinine, Serum 0.94 mg/dL (0.70-1.30); EST Glomerular Filtration Rate 84 mL/min (>60); Est Glom Filt Rate - Afr Amer 102 mL/min (>60); Estimated Creatinine Clearance 67.39 ml/min; Glucose 176 mg/dL (74-106); Potassium 4.1 mmol/L (3.5-5.1); Sodium Level 136 mmol/L (136-145)
[2023-05-10 08:00] VITALS: BP 142/68; PULSE 51; RESP 18; TEMP 36.2; O2SAT 96
[2023-05-10] MEDS: Senna/Docusate Sodium 1 Tablet 2 TABLET PO (08:19)
[2023-05-10] MEDS: oxyCODONE 5 MG Tablet PO (08:19)
[2023-05-10] MEDS: Aspirin 81 MG TAB.CHEW PO (08:20)
[2023-05-10] MEDS: Famotidine 20 MG Tablet PO (08:20)
[2023-05-10] MEDS: Pantoprazole Sodium 20 MG Tablet PO (08:20)
[2023-05-10] MEDS: metFORMIN HCl 500 MG Tablet PO (08:20)
[2023-05-10] MEDS: Calcium Carb/Vitamin D 1 TABLET Tablet PO (08:20)
[2023-05-10] MEDS: Multivitamins,Ther W-Minerals Tablet 1 TABLET PO (08:20)
[2023-05-10] MEDS: Magnesium Chloride 64 MG Delay Rel.Tablet 128 MG PO (08:20)
[2023-05-10] MEDS: amLODIPine 5 MG Tablet PO (08:22)
[2023-05-10] MEDS: Lisinopril 40 MG Tablet PO (08:22)
[2023-05-10 10:07] VITALS: O2SAT 96
--- NOTE | 2023-05-10 11:12 | PCM.PN.ORT ---
Subjective Subjective The patient was sitting in bedside chair upon examination with family present. Patient denies any chest pain, shortness of breath, dizziness, lightheadedness, nausea or vomiting, or calf pain. Pain is controlled on medications. No adverse overnight events. Patient overall appears to be doing well. He did well with physical therapy this morning. Plan will be for most likely discharge home this afternoon as long as patient tolerates therapy and pain is well controlled. He states his pain is primarily when up and walking. Objective Data Objective Data Vital Signs: Vital Signs Temp Pulse Resp BP Pulse Ox O2 Del Method O2 Flow Rate 97.1 F L 51 L 18 142/68 H 96 Room Air 4 05/10/23 08:00 05/10/23 08:00 05/10/23 08:00 05/10/23 08:00 05/10/23 10:07 05/10/23 08:00 05/09/23 15:14 Oxygen Flow Rate (L/min) 4 Oxygen Delivery Method Room Air Weight: 116 kg Body Mass Index (BMI) 40.0 Intake & Output: Intake and Output for Last 24 Hours 05/08/23 05/09/23 05/10/23 23:59 23:59 23:59 Intake Total 3017.25 / 3017.25 206 / 206 Output Total 750 / 750 Balance 3017.25 / 2617.25 -544 / -544 Lab / Micro Data 05/10/23 06:20 05/10/23 06:20 Labs: Laboratory Results - last 24 hr 05/09/23 12:51: POC Glucose 164 H 05/09/23 21:10: POC Glucose 274 H 05/10/23 06:06: POC Glucose 188 H 05/10/23 06:20: WBC 12.6 H, RBC 4.01 L, Hgb 12.4 L, Hct 36.1 L, MCV 90.0, MCH 30.9, MCHC 34.3, RDW Std Deviation 40.0, RDW Coeff of Brock 12.2, Plt Count 168, MPV 9.1, Sodium 136, Potassium 4.1, Chloride 106, Carbon Dioxide 25.0, Anion Gap 5, BUN 17, Creatinine 0.94, Estim Creat Clear Calc 67.39, Est GFR (MDRD) Af Amer 102, Est GFR (MDRD) Non-Af 84, BUN/Creatinine Ratio 18.1, Glucose 176 H, Calcium 8.5 Micro: Microbiology 04/17/23 08:58 Swab (Method) Nasal Screen MRSA/MSSA - Final Radiography Diagnostic Testing: Radiology Impression Knee X-Ray 05/09/23 12:40 IMPRESSION: New postoperative changes related to left total knee arthroplasty. Electronically Signed: Rudi Farley MD at 12:54 EDT , Physical Exam Narrative Vital signs stable and afebrile. SCDs and JAY hose are in place bilaterally Patient is able to plantarflex and dorsiflex actively. Sensation is intact to light touch to saphenous, sural, superficial and deep peroneal, and tibial distribution. Proximal and main Mepilex dressing dressing is clean dry and intact. Mild saturation distal pin site dressing Negative Homans bilaterally, negative signs and symptoms of DVT. Const alert, oriented x3 and no apparent distress Assessment & Plan Assessment/Plan (1) Status post total left knee replacement: PLAN: 1. S/P left total knee arthroplasty POD #1 2. Continue Pain Medications: Tylenol, meloxicam, oxycodone. Do not take any other nonsteroidal anti-inflammatories while using meloxicam/Mobic. 3. DVT Prophylaxis: Take 81 mg aspirin twice daily for 4 weeks postoperatively for DVT prophylaxis. Patient denies past history of DVT or pulmonary embolism. 4. PT/OT: Weightbearing as tolerated with walker 5. H & H: Lab work was reviewed and stable, asymptomatic. 6. Currently on doxycycline for 2 weeks postoperatively. Patient will utilize doxycycline for 2 weeks due to A1c of 7.2 and preoperative screening in which he was staph positive. I discussed with the patient potential side effects of doxycycline including sensitivity to the sunlight and increased risk of skin burn. Recommend patient take appropriate precautions. Also recommend patient to take probiotic while on the antibiotic. Patient voiced understanding agreement. 7. Continue postoperative medical management per medicine: Case was discussed with medicine 8. Encouraged Incentive Spirometry 9. Disposition: Plan will be for discharge home today as long as patient remains medically stable, tolerates therapy, and pain is well controlled. He would like his medications E scribed to [facility]. He has outpatient physical therapy established. He will follow-up per postoperative instructions. I discussed all medications with the patient today and all questions were answered. Upon discharge she will contact her office with any concerns or questions. I have reviewed the [place] Automated Rx Reporting System (OARRS) report for this patient for refill pattern and other prescriber involvement as part of the appropriate surveillance for the provision of acute and chronic controlled medications. The report was requested and reviewed on the date of this entry and was considered in the prescribing process. This dictation was created using voice recognition software. Phonetic and/or grammatical errors may exist.
--- NOTE | 2023-05-10 11:16 | PCM.DC ---
Discharge Instructions Diet Discharge Diet: No restrictions Activity Discharge Activity: May Not Drive (Okay to consider driving once patient is off all narcotics and can walk 100 feet with use of cane.) May shower in (days): 1 (Please turn dressing away from water. Okay to get wet as long as dressing is intact to skin.) Ice area for (Minutes): 20 (Every 1-2 hours while awake. Please place barrier between the skin and ice pack.) Weight Bearing Status: Weight bearing as tolerated Keep extremity elevated above heart level: Operative Extremity Dressing / Incision Call your doctor if your incision/area has: Continuous Slow Oozing, Sudden Increased Bleeding, Increased Pain/ Swelling, Increased Redness and Foul Smelling Discharge Call your doctor if you observe: Fever of 101 or Higher, Coldness, Increased Pain, Numbness or Tingling, Change in Color, Shortness of breath, Chest pain, Calf discomfort and Uncontrolled pain Remove Dressing in: 4 days (Okay to remove dressing on May 14, 2023) Additional Dressing/Incision Instructions:: Follow [facility] Post-op Instructions. Once postoperative dressing has been removed only use gentle soap and water over the incision. Do not use any ointments, Neosporin, salves, alcohol pads over the incision for 6 weeks postoperatively. Do not submerge underwater for 6 weeks postoperatively. Continue with JAY hose/elastic stockings for 2 weeks postoperatively. May remove at nighttime but needs to be placed back on the leg during the day. Do NOT use alcohol with narcotic pain medication. Do NOT make important decisions while taking narcotic medication. If you have problems with taking your medication (rash, itching, nausea, etc.) call the office at once. Follow Up Care Test Results: Test results from this visit will be discussed in further detail at your follow-up appointment, if applicable. Discharge Plan Admission Admit Date/Time: 05/09/23 12:15 Attending Provider: Bradford Guzman Primary Care Provider: Martinez Kent Consulting Providers: Tomeka Henderson Discharge Orders/Prescriptions Prescriptions: New acetaminophen 500 mg Tablet 1,000 mg PO Q8 Qty: 90 0RF Rx Instructions: Do not take more than 3000 mg Tylenol in a 24-hour period. meloxicam 7.5 mg Tablet 7.5 mg PO BID 30 Days Qty: 60 0RF Rx Instructions: Do not take any other nonsteroidal anti-inflammatories while using meloxicam/Mobic. doxycycline monohydrate 100 mg Capsule 100 mg PO BID 14 Days Qty: 28 0RF Rx Instructions: Take for 2 weeks postoperatively aspirin 81 mg Tablet,Chewable 81 mg PO BIDCM 30 Days Qty: 60 0RF Rx Instructions: Take 81 mg aspirin twice daily for 4 weeks postoperatively for DVT prophylaxis. oxycodone 5 mg Tablet 5 - 10 mg PO Q4H PRN PRN (Reason: Pain Score 4-10) 5 Days Qty: 42 0RF sennosides-docusate sodium [Stool Softener-Stimulant Laxat] 8.6-50 mg Tablet 2 tab PO BID 3 Days Qty: 12 0RF Rx Instructions: Take until first bowel movement, then as needed Continued metformin 500 MG tablet 500 mg PO DAILY carvedilol 12.5 MG tablet 25 mg PO BID multivitamin with minerals 1 EACH tablet 1 ea PO DAILY calcium carbonate-vitamin D3 1 EACH tablet 1 ea PO DAILY amlodipine-benazepril 1 EACH capsule 1 ea PO DAILY hydrochlorothiazide 12.5 MG tablet 50 mg PO DAILY magnesium oxide 500 MG capsule 500 mg PO DAILY potassium gluconate 99 MG tablet 99 mg PO DAILY cyanocobalamin (vitamin B-12) 2,500 MCG tablet 3,000 mcg PO DAILY quercetin 500 mg capsule 500 mg PO DAILY omeprazole 20 mg capsule,delayed release(DR/EC) 20 mg PO DAILY Discontinued aspirin 81 MG tablet 81 mg PO QODAY Referrals / Follow Up: Physical,Therapy [Other] - 05/14/23 10:00 am Martinez Kent MD [Primary Care Provider] - Luis Armando Nichole PA-C [Med Staff - [facility] Practice Prof] - 05/24/23 3:15 pm Disposition Disposition (needs filled in before D/C Order can be placed): Home, Self Care
[2023-05-10] MEDS: hydroCHLOROthiazide 25 MG Tablet 50 MG PO (12:07)
[2023-05-10] MEDS: Doxycycline 100 MG CAPSULE PO (12:07)
[2023-05-10] MEDS: Carvedilol 25 MG Tablet PO (12:07)
[2023-05-10 12:14] VITALS: BP 144/63; PULSE 61; RESP 18; TEMP 36.6; O2SAT 99
--- NOTE | 2023-05-10 12:25 | CASEMGMT ---
RN?CM?COURT ABSTRACTOR?CM?to room to meet with patient for initial transition planning/care coordination?assessment.?RN?CM?introduced self and role at [facility].? Pt voices understanding and consents to?assessment?at this time.? Pt resting in bed in no distress at this time.? Pt is A/O at this time and answers all questions appropriately.?? Care providers, pharmacy, and demographics verified/updated at this time. PCP: Dr Kent Specialists: Dr Guzman-ortho, Dr Willard-pulmonology for [facility] Preferred Pharmacy: [facility] Retail Insurance: MCR, MMO Prescription Benefit:?Yes Living Will/HPOA:? Pt does not currently have LW/HCPOA and declines info at this time.? Pt made aware that he can contact as an out-pt and make appt in the future if he decides he would like to talk with someone about this or would like to utilize [facility] social work for advanced directive completion.?? LNOK: , Mary Kate Living Arrangements: Lives w/his in 2-story home w/2 steps to enter. FFSU. Independent @ baseline. and dtr's supportive and able to help, as needed. Transportation:?Pt states drives self and states no transportation concerns at this time.? also drives. DME: ?States has the following DME:?grab bars, CPAP thru [employer], toilet riser, cane, polar care, functioning glucometer w/supplies. Pt also borrowed a walker from his bro-in-law to use. Pt states no need for further DME at this time.? HHC/SNF: No hx of either. Denies needs. OP Therapy: Pt states is scheduled to begin OP therapy @ [facility]. Noted 1st appt is scheduled for 05/14. Pt states he is aware of this. Pt wishes to return home and states has no concerns with going home at time of discharge.? CM?to follow for any further discharge planning/needs.? Pt voices no further concerns/needs at this time.? Advised pt to ask for?CM?if any further questions/concerns/needs arise.? Voices understanding. PLAN:??Home w/OP therapy @ [facility]. Lorena BSN?RN?CM
[2023-05-10 12:37] LABS: Bedside Glucose 228 mg/dL (74-106)
== END 2023-05-10 14:40 | disposition home or self-care (01) ==
LOC: SDC 12:53 → MS3 12:53
PROVIDERS: Anesthesiology; Admitting Provider Specialist; PCP Family Medicine; Referring Provider Specialist; Visit Provider Specialist
PROC: 0SRD0JZ Replacement of Left Knee Joint with Synthetic Substitute, Open Approach (ICD-10-PCS; CPT 27447; principal; 2023-05-09 09:00)
DX: M17.0 Bilateral primary osteoarthritis of knee (principal); E11.9 Type 2 diabetes mellitus without complications; G47.30 Sleep apnea, unspecified; Z79.891 Long term (current) use of opiate analgesic; I10 Essential (primary) hypertension; K21.9 Gastro-esophageal reflux disease without esophagitis; Z79.84 Long term (current) use of oral hypoglycemic drugs; E78.00 Pure hypercholesterolemia, unspecified; Z79.899 Other long term (current) drug therapy; Z79.82 Long term (current) use of aspirin
CPT/HCPCS: 27447; S2900; 01402; 64447; 36415; 73560; 80048; 82040; 82962; 83036; 83735; 85025; 85027; 87077; 87081; 88305; 88311; 93005; 94668; 96365; 96366; 97162; 97166; 97530; 97535; 99221; 99252; C1776; J7040; J7050; J7120; G0378; G0463; J2405; J3475

== ENCOUNTER → 2023-05-16 | Outpatient (CLI) | payer MEDICARE, OTHER, SELFPAY ==
--- NOTE | 2023-05-16 13:45 | VDLE_ITS ---
Reason For Study: Left leg swelling RIGHT LEFT CFV is compressible, spontaneous, phasic, GSV is normal. competent and demonstrates normal CFV is compressible, spontaneous, phasic, augmentation. competent, and demonstrates normal Procedure augmentation. This is a venous duplex using B-mode, color FV is compressible, spontaneous, phasic, flow and spectral Doppler. competent and demonstrates normal Exam performed in department. augmentation. A preliminary report was called and/or faxed POP V is compressible, spontaneous, phasic, to Dr. Guzman. competent and demonstrates normal augmentation. T/P Trunk is compressible. PTV is compressible. LT PerV is compressible. VL/Venous Duplex US, Unilateral Interpretation Summary There is no evidence of left lower extremity deep vein thrombosis. Left great s aphenous vein appears patent and compressible segmentally. Normal flow patterns right common femoral vein Ordering Physician: Bradford Guzman Referring Physician: Martinez Kent Performed By: Alexandria Goldberg RVT
== END | disposition home or self-care (01) ==
LOC: CVS 13:43
PROVIDERS: PCP Family Medicine; Referring Provider Specialist; Visit Provider Specialist
DX: R22.42 Localized swelling, mass and lump, left lower limb (principal)
CPT/HCPCS: 93971

== ENCOUNTER → 2023-06-14 | Outpatient (CLI) | payer MEDICARE, OTHER, SELFPAY ==
--- NOTE | 2023-06-14 15:39 | CT_ITS ---
EXAM: CT RIGHT LOWER EXTREMITY WITHOUT INTRAVENOUS CONTRAST CLINICAL INDICATION: PRE OP R KNEE TECHNIQUE: Helically acquired images were obtained of the right lower extremity without intravenous contrast. 2-D reformats were performed by the technologist. CTDIvol = ( 19.19 ) mGy, DLP = ( 1261.05 ) mGycm This CT exam was performed using one or more of the following dose reduction techniques: automated exposure control, adjustment of the mA and/or kV according to patient size, and/or use of iterative reconstruction technique. COMPARISON: No relevant prior studies available. FINDINGS: BONES/JOINTS: Moderate hip osteoarthrosis. Tricompartmental osteoarthrosis of the knee, severe at the medial femorotibial compartment with mild lateral subluxation of the tibia relative to the femur. Extensor mechanism enthesopathy. Ankle mortise is intact with no osteochondral lesions at the tibiotalar articulation. Prominent posterior calcaneal enthesophyte. No acute fracture. No significant joint effusion. SOFT TISSUES: Unremarkable. No soft tissue swelling or gas. No radiopaque foreign body. VASCULATURE: Atherosclerotic calcifications of the large and intermediate-sized arteries of the extremity. OTHER FINDINGS: Preoperative planning study. CT/Extremity Lower without Contra IMPRESSION: Preoperative planning study showing severe tricompartmental osteoarthrosis of the knee. Electronically Signed: Johnathan Hunter MD at 21:22 EST Reading Location ID and State: [address] [place] [address] Tel , Service support ,
== END | disposition home or self-care (01) ==
LOC: CT 15:28
PROVIDERS: Visit Provider Specialist
DX: M21.161 Varus deformity, not elsewhere classified, right knee (principal)
CPT/HCPCS: 73700

== ENCOUNTER → 2023-06-19 | Outpatient (CLI) | payer MEDICARE, OTHER, SELFPAY ==
[2023-06-19 16:18] LABS: Absolute Lymphocyte Count 1.74 X10^3/uL (0.83-4.51); Basophil# 0.03 X10^3/uL; Basophil% 0.5 % (0-1); Eosinophil# 0.15 X10^3/uL; Eosinophils% 2.3 % (0-5); Hematocrit 38.3 % (40-54); Hemoglobin 12.7 g/dL (13.0-16.5); Lymphocyte # 1.74 X10^3/ul (0.83-4.51); Lymphocyte % 26.4 % (19-41); Mean Corp Hgb Conc 33.2 g/dL (32-36); Mean Corpuscular Hgb 29.9 pg (27.0-32.0); Mean Corpuscular Volume 90.1 fL (80-94); Mean Platelet Vol. 9.2 fl (6.2-12.0); Monocyte# 0.66 X10^3/uL; NRBC Flagged by Analyzer 0 % (0-5); Neutrophil # 3.98 X10^3/uL (2.7-7.7); Neutrophil % 60.5 % (47-70); Platelet Count 196 K/mm3 (150-450); RBC Distribution Width CV 12.5 % (11.6-14.6); RBC Distribution Width SD 41.1 fl (35.1-43.9); Red Blood Count 4.25 M/mm3 (4.6-6.2); White Blood Count 6.6 K/mm3 (4.4-11.0)
[2023-06-19 16:44] LABS: Albumin, Serum 3.7 g/dL (3.2-5.0)
[2023-06-19 16:53] LABS: Hemoglobin A1c 6.6 % (3.8-5.6)
== END | disposition home or self-care (01) ==
LOC: PAT 07-25 12:17
PROVIDERS: Anesthesiology; PCP Family Medicine; Visit Provider Specialist
DX: Z01.818 Encounter for other preprocedural examination (principal); E11.9 Type 2 diabetes mellitus without complications; M17.12 Unilateral primary osteoarthritis, left knee; I10 Essential (primary) hypertension; E78.00 Pure hypercholesterolemia, unspecified
CPT/HCPCS: 36415; 82040; 83036; 83735; 85025; 87081; J3475

== ENCOUNTER 2023-10-24 07:04 | Observation (INO) | payer MEDICARE, OTHER, SELFPAY ==
--- NOTE | 2023-10-02 12:21 | EKG12_ITS ---
Test Reason : PREOP Blood Pressure : / mmHG Vent. Rate : 054 BPM Atrial Rate : 054 BPM P-R Int : 170 ms QRS Dur : 082 ms QT Int : 432 ms P-R-T Axes : 081 024 049 degrees QTc Int : 409 ms Sinus bradycardia Otherwise normal ECG Confirmed by Colt Shell ([id number]), market editor MADDI BONNER ([id number]) on 10/03/2023 9:21:21 AM Referred By: Bradford Guzman Confirmed By:Colt Shell
[2023-10-02 13:37] LABS: Absolute Lymphocyte Count 1.81 X10^3/uL (0.83-4.51); Absolute Neutrophil Count 3.4 X10^3/uL (2.0-7.7); Basophil# 0.02 X10^3/uL; Basophil% 0.3 % (0-1); Eosinophil# 0.16 X10^3/uL; Eosinophils% 2.7 % (0-5); Hematocrit 39.2 % (40-54); Hemoglobin 13.2 g/dL (13.0-16.5); Lymphocyte # 1.81 X10^3/ul (0.83-4.51); Mean Corp Hgb Conc 33.7 g/dL (32-36); Mean Corpuscular Hgb 29.5 pg (27.0-32.0); Mean Corpuscular Volume 87.7 fL (80-94); Mean Platelet Vol. 9.2 fl (6.2-12.0); Monocyte# 0.61 X10^3/uL; Monocyte% 10.1 % (0-10); NRBC Flagged by Analyzer 0 % (0-5); Neutrophil # 3.42 X10^3/uL (2.7-7.7); Neutrophil % 56.7 % (47-70); Platelet Count 164 K/mm3 (150-450); RBC Distribution Width CV 13.2 % (11.6-14.6); RBC Distribution Width SD 42.3 fl (35.1-43.9); Red Blood Count 4.47 M/mm3 (4.6-6.2)
[2023-10-02 14:02] LABS: Albumin, Serum 3.5 g/dL (3.2-5.0); Anion Gap 7 (5-15); BUN 28 mg/dL (7-18); BUN/Creat Ratio 28.3 RATIO (10-20); Chloride 104 mmol/L (98-107); Creatinine, Serum 0.99 mg/dL (0.70-1.30); EST Glomerular Filtration Rate 79 mL/min (>60); Est Glom Filt Rate - Afr Amer 96 mL/min (>60); Glucose 138 mg/dL (74-106); Potassium 3.9 mmol/L (3.5-5.1); Sodium Level 142 mmol/L (136-145)
[2023-10-02 14:44] LABS: Hemoglobin A1c 7.2 % (3.8-5.6)
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
[2023-10-24] VITALS (16 sets, daily range): BP systolic 119–170; BP diastolic 64–81; PULSE 45–59; RESP 15–20; TEMP 36.1–37; O2SAT 95–100; BMI 38.8
--- NOTE | 2023-10-24 | KNEE_PTH ---
PATIENT: VICENTE SUAREZ LOC: MS3 U#:[id number] AGE/SX: 73/M ROOM: [facility] RE10/24/[address]: Dr. Bradford Guzman MD : 1950 BED: 1 DIS: 10/25/2023 SPEC #: [id number] RECD: 10/24/23 13:11 STATUS: KM RETevin #: [id number] FERN: 10/24/23 00:[address]: Bradford Guzman DEPT: SURGICAL PATHOLOGY RECD BY: Kb Hough ENTERED: 10/24/23 13:11 SP TYPE: TOTAL KNEE OTHR DR: DO Dr. Martinez Maher MD Tissues: Knee, NOS Procedures: Decalcification bone/plaque Surgery Specimen Level IV HEADER OPERATION: ANDIE, robotic assisted right total knee arthroplasty PRE-OP DIAGNOSIS: Severe right knee osteoarthritis with varus deformity TISSUE SUBMITTED: Right knee bone MICROSCOPIC DIAGNOSIS Bone and soft tissue, right knee, total knee replacement/resection: Pieces of bone with degenerative osteoarthritic changes. Fragments of fibroadiopose tissue, fibroconnective tissue and reactive synovial tissue. CLARA: 10/29/23 MICROSCOPIC DESCRIPTION Slides are reviewed. GROSS DESCRIPTION Received is one container designated bone and soft tissue right knee. The specimen consists of multiple fragments of breaux-yellow bone measuring in aggregate 17.0 x 12.0 x 2.0 cm. Also in the specimen container are multiple fragments of yellow-white soft tissue measuring in aggregate 7.0 x 2.0 x 0.6 cm. A number of bony fragments contain articular surfaces consistent with tibial plateau and femoral condyle and displaying prominent osteophyte formation, eburnation and bone erosion. Mailer Apprentice sections are submitted in two cassettes as follows: 1 - soft tissue, 2 - bone after decalcification. SAHLI/ 10/24/23 TC:5 CPT: 10562, 22606
[2023-10-24] MEDS: Magnesium 1 GM over 15 mins IV (07:06)
[2023-10-24] MEDS: Lactated Ringers 1,000 ML 999 ML IV (07:06)
[2023-10-24] MEDS: Acetaminophen 500 MG Tablet 1000 MG PO ×3 (07:07→21:38)
[2023-10-24] MEDS: Gabapentin 600 MG Tablet PO (07:08)
[2023-10-24] MEDS: Celecoxib 200 MG Capsule 400 MG PO (07:08)
[2023-10-24 07:48] LABS: Bedside Glucose 169 mg/dL (74-106)
[2023-10-24] MEDS: Cefazolin 2 GM in 0.9% Normal Saline (100mL Bag) 100 ML IV (08:24)
[2023-10-24] MEDS: TXA 1000mg in NS100 100ml (IVPB at Incision) 660 MG IV (08:45)
--- NOTE | 2023-10-24 09:46 | OP.PCM_ITS ---
Report of Operation Date of Procedure: 10/24/23 Pre-Operative Diagnosis: Right knee primary osteoarthritis Post-Operative Diagnosis: Right knee primary osteoarthritis Surgery/Procedure Performed:: Right minimally invasive robotic total knee replacement Description of Surgical Findings:: Stable knee with good patella tracking Surgeon: Bradford Guzman chief medical officer: Luis Armando Nichole Type of Anesthesia: Spinal Anesthesiologist: Giacomo Sauceda Special Medications: 2 g Ancef, 1 g TXA at incision, 1 g TXA closure, 10 mg Decadron, joint cocktail (5 mg Duramorph, 30 mL of 0.5% Ropivicaine, 1000 units of epinephrine, 30 mg of Toradol) Specimen's removed: Bony cuts Estimated Blood Loss (mL): 100 Fluids Replaced: 1000 ml crystalloid Description of Procedure: Implants used: 1. [place] size 5 triathlon cruciate retaining distal femoral press-fit component 2. Vicky size 6 press-fit tritanium tibial baseplate 3. Vicky X3 11 mm CS polyethylene 4. Vicky X3 38 mm asymmetric patella Brief history operative indications: 73-year-old m with history of right knee osteoarthritis with radiographic findings with loss of joint space, osteophyte formation and subchondral sclerosis. Failed conservative measures as mentioned in the H&P. Discussion of total knee arthroplasty as well as risk and benefits were discussed the patient including but not limited to blood loss, DVTs, PEs, neurovascular damage, general risk of anesthesia including loss of life, and stiffness or instability were discussed with patient. Patient demonstrated understanding and was able to sign informed consent. Procedure: On the date of procedure patient's right lower extremity was marked in the preoperative area. The patient was then taken back to the operating room where the patient was placed on the table in the supine position. All bony prominences were identified a well-padded. Anesthesia assumed control of the C-spine and airway and remained controlled throughout the remainder of the procedure. A tourniquet was placed on the right upper thigh and the leg was prepped in a sterile fashion. The surgeon then scrubbed at this time .Upon reentering the room right lower extremity was draped in a standard orthopedic fashion. A timeout was then called and everyone agreed upon the side, the site, the procedure to be performed, patient's identity and antibiotics given. Esmarch bandage was used to exsanguinate the extremity and the tourniquet was placed up to 250 mmHg with the knee in flexion. A midline skin incision was made and sharp dissection was taken down through skin subcutaneous tissue and fat. The standard medial parapatellar incision was made and the patella was subluxed laterally. An Appropriate deep MCL release was done and the fat pad was resected. Our attention was then directed to the patella. The patella was everted and a flat resection was made. The knee was then flexed up in 2 femoral pins were placed inside the incision and 2 tibial pins were placed outside the incision in the medial tibia bicortically. Once this was completed the 2 checkpoints in the femur and tibia were placed. Knee was then flexed up and the bony landmarks were registered. Once this was completed knee was taken through range of motion and manually stressed allowing us to a plan for an appropriate tibial cut. The robotic arm was brought into the field sterilely and checkpoint and saw were registered. Based on the patient's deformity the tibial cut was made in 1 degree of varus. At this time the tensioner was then placed in the joint and ligament tension was checked at 90 degrees and full extension. Based on the patient's ligamentous tension appropriate adjustments were made to the operative plan and ligament releases were done. Once we were happy with our operative plan with balanced flexion and extension gaps our attention was directed to the femur. The robot was brought into the field sterilely and registered. Posterior condylar cuts, anterior chamfer cuts and anterior cuts were appropriately made for a size 5 femur. When these were completed the saws were switched out in the distal femoral and posterior chamfer cuts were made. Protecting the soft tissue throughout this time. A size 6 tibial base plate was selected. the knee was flexed to 90 degrees and the soft tissues and posterior osteophytes were removed from the joint. 40 cc of the periarticular injection was injected into the posterior medial corner of the joint. The appropriate trials were then placed on the femur and tibia. A trial polyethylene was trialed to ensure proper balancing and stability of the knee. The appropriate tibial internal rotation was then marked with a bovie. Our attention was then directed to the patella. The lug holes were drilled and the patella trial was placed. Patellar tracking was checked and deemed appropriate. Once we were happy lug holes were drilled for the femur and trial components were removed. the tibia was subluxed and pinned into place and the keel was punched and drilled appropriately. Final components were verified and opened, and cement was mixed in a vacuum. [place] Simplex cement was used. The wound was copiously irrigated with normal saline. When the cement was ready the components were impacted into place starting with the tibia, femur and finally cementing the patella. The trial poly component was placed and the knee was placed in full extension. All excess cement was removed in the process. Once the cement had cured the tracking, alignment and balance were verified and a size 11 mm CS polyethylene component was placed. Once the final components were placed a 3-minute dilute Betadine lavage was performed followed by an Irrisept lavage was performed and the wound was copiously irrigated with normal saline solution and the periarticular injection was given. The wound was closed in a layer meng fashion using #1 vicryl interrupted sutures for the arthrotomy, 2-0 interrupted Vicryl suture for the subcuticular layer and joel for final skin closure. A sterile compressive dressing was then placed. The patient was then awakened from anesthesia, transferred to the [facility] and transferred to the PACU for recovery. Post op plan DVT ppx: ASA 81mg BID, thigh high compression stockings Follow up: in office in 2 weeks for wound check PT: to start POD #0 at hospital, outpatient PT should be arranged. Doxycycline 100 mg p.o. twice daily due to positive staph screening and hemoglobin A1c greater than 7 My physician research study assistant was a vital part of this case. He was important in appropriate retraction during the case, and protection of soft tissues during bony cuts. His intimate knowledge of the case and my steps aided in safe and expedient completion of the procedure as well as appropriate position of the leg during the case. He was also vital in assisting with closure under my direct supervision. Due to the complexity of this case robotic arm was used to assist in the surgery to improve accuracy and clinical outcomes. Complications No intraoperative complications Admit VTE Documentation VTE Present on Admission: No VTE Mechan Device Prophylaxis: SCD's and Thigh High JAY Hose VTE Pharm Prophylaxis ordered?: Yes
[2023-10-24] MEDS: JPS (Morphine 10mg/ml) OPERA.SITE (09:47)
[2023-10-24] MEDS: TXA 1000mg in NS100 100ml (IVPB at Closure) 660 MG IV (09:48)
[2023-10-24] MEDS: Lactated Ringers 1,000 ML 125 ML IV (10:57)
[2023-10-24 11:07] LABS: Bedside Glucose 144 mg/dL (74-106)
--- NOTE | 2023-10-24 11:07 | RAD_ITS ---
INDICATION: post op -- AP and Lateral x-ray of operative knee in PACU EXAMINATION/TECHNIQUE: X-RAY - RIGHT XR Knee 1 or 2 Views 2 VIEWS COMPARISON: No relevant prior comparison study available FINDINGS: SOFT TISSUES: Soft tissue swelling and gas in the soft tissues is consistent with recent surgery. Consistent with recent surgery. Skin joel. BONES/JOINTS: Status post total knee arthroplasty. The alignment is unremarkable. No evidence of fracture . No sclerotic or destructive changes observed. RAD/Knee 1 or 2 Views IMPRESSION: Status post knee arthroplasty. Electronically Signed: Hebert Carrasco MD at 12:07 EDT ,
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
[2023-10-24] MEDS: Famotidine 20 MG Tablet PO (14:10)
[2023-10-24] MEDS: Cyanocobalamin 500 MCG Tablet 3000 MCG PO (14:11)
[2023-10-24] MEDS: Lisinopril 40 MG Tablet PO (14:12)
[2023-10-24] MEDS: Cholecalciferol (VIT D3) 25 MCG TABLET (1,000 UNITS) 50 MCG PO (14:12)
[2023-10-24] MEDS: Calcium Carbonate 500 MG Tablet PO (14:12)
[2023-10-24] MEDS: Pantoprazole Sodium 20 MG Tablet PO (14:13)
[2023-10-24] MEDS: Senna/Docusate Sodium 1 Tablet 2 TABLET PO ×2 (14:13→21:37)
[2023-10-24] MEDS: Cefazolin 1 GM/50 ML BAG IV (16:00)
[2023-10-24 18:44] LABS: Bedside Glucose 123 mg/dL (74-106)
[2023-10-24] MEDS: Aspirin 81 MG TAB.CHEW PO (21:37)
[2023-10-24] MEDS: Carvedilol 12.5 MG Tablet 25 MG PO (21:37)
[2023-10-24] MEDS: Ketorolac 15 MG/ML Vial IV (21:41)
[2023-10-25] VITALS (7 sets, daily range): BP systolic 122–162; BP diastolic 57–72; PULSE 52–67; RESP 16–18; TEMP 36.5–37; O2SAT 93–97
[2023-10-25] MEDS: Cefazolin 1 GM/50 ML BAG IV (00:41)
[2023-10-25 02:07] LABS: Bedside Glucose 135 mg/dL (74-106)
[2023-10-25] MEDS: Acetaminophen 500 MG Tablet 1000 MG PO (06:41)
[2023-10-25] MEDS: 0.9% Saline Lock 10 ML Syringe IV (06:42)
[2023-10-25 07:15] LABS: Bedside Glucose 126 mg/dL (74-106)
[2023-10-25] MEDS: Ensure Surgery 237 ML LIQUID PO ×2 (07:43→11:05)
[2023-10-25] MEDS: Multivitamins,Ther W-Minerals Tablet 1 TABLET PO (07:44)
[2023-10-25] MEDS: Aspirin 81 MG TAB.CHEW PO (07:44)
[2023-10-25] MEDS: hydroCHLOROthiazide 25 MG Tablet 50 MG PO (07:44)
[2023-10-25] MEDS: Cholecalciferol (VIT D3) 25 MCG TABLET (1,000 UNITS) 50 MCG PO (07:44)
[2023-10-25] MEDS: Magnesium Chloride 64 MG Delay Rel.Tablet 128 MG PO (07:44)
[2023-10-25] MEDS: Senna/Docusate Sodium 1 Tablet 2 TABLET PO (07:45)
[2023-10-25] MEDS: Carvedilol 12.5 MG Tablet 25 MG PO (07:45)
[2023-10-25] MEDS: Cyanocobalamin 500 MCG Tablet 3000 MCG PO (07:45)
[2023-10-25] MEDS: Pantoprazole Sodium 20 MG Tablet PO (07:45)
[2023-10-25] MEDS: Lisinopril 40 MG Tablet PO (07:45)
[2023-10-25] MEDS: amLODIPine 5 MG Tablet PO (07:46)
[2023-10-25] MEDS: Calcium Carbonate 500 MG Tablet PO (07:46)
[2023-10-25] MEDS: Famotidine 20 MG Tablet PO (07:46)
[2023-10-25 08:05] LABS: Hematocrit 38.7 % (40-54); Hemoglobin 12.9 g/dL (13.0-16.5); Mean Corp Hgb Conc 33.3 g/dL (32-36); Mean Corpuscular Hgb 29.8 pg (27.0-32.0); Mean Corpuscular Volume 89.4 fL (80-94); Mean Platelet Vol. 9.4 fl (6.2-12.0); Platelet Count 163 K/mm3 (150-450); RBC Distribution Width CV 13.2 % (11.6-14.6); RBC Distribution Width SD 43.6 fl (35.1-43.9); Red Blood Count 4.33 M/mm3 (4.6-6.2); White Blood Count 7.1 K/mm3 (4.4-11.0)
[2023-10-25 08:37] LABS: Anion Gap 5 (5-15); BUN 16 mg/dL (7-18); BUN/Creat Ratio 15.8 RATIO (10-20); Calcium,Total 8.6 mg/dL (8.5-10.1); Chloride 104 mmol/L (98-107); Creatinine, Serum 1.01 mg/dL (0.70-1.30); EST Glomerular Filtration Rate 77 mL/min (>60); Est Glom Filt Rate - Afr Amer 94 mL/min (>60); Estimated Creatinine Clearance 80.33 ml/min; Glucose 129 mg/dL (74-106); Potassium 3.4 mmol/L (3.5-5.1); Sodium Level 136 mmol/L (136-145)
--- NOTE | 2023-10-25 10:05 | CASEMGMT ---
Met with pt to complete JOHNSON form. JOHNSON form explained to pt who voiced understanding and signed form. Original form placed in pt?s chart and copy provided to?pt. Jonna Mercado, Discharge Planning Asst
--- NOTE | 2023-10-25 10:18 | PCM.PN.ORT ---
Subjective Subjective The patient was sitting in bed upon examination. Patient denies any chest pain, shortness of breath, dizziness, lightheadedness, nausea or vomiting, or calf pain. Pain is controlled on medications. No adverse overnight events. Patient is overall doing very well. He did well with therapy this morning. He plans to go home this afternoon. Patient has been through previous left total knee arthroplasty in 2022 by Bradford Guzman. No complaints with the left knee.. Objective Data Objective Data Vital Signs: Vital Signs Temp Pulse Resp BP Pulse Ox O2 Del Method O2 Flow Rate 98.2 F 57 L 16 128/72 H 95 Room Air 2 10/25/23 08:35 10/25/23 08:35 10/25/23 08:35 10/25/23 08:35 10/25/23 08:35 10/25/23 08:35 10/24/23 20:04 Oxygen Flow Rate (L/min) 2 Oxygen Delivery Method Room Air Weight: 112.491 kg Body Mass Index (BMI) 38.8 Intake & Output: Intake and Output for Last 24 Hours 10/23/23 10/24/23 10/25/23 23:59 23:59 23:59 Intake Total 2298.67 / 2298.67 233.33 / 233.33 Balance 2298.67 / 2298.67 233.33 / 233.33 Lab / Micro Data 10/25/23 06:27 10/25/23 06:37 Labs: Laboratory Results - last 24 hr 10/24/23 10:47: POC Glucose 144 H 10/24/23 15:38: POC Glucose 123 H 10/24/23 21:32: POC Glucose 135 H 10/25/23 06:27: WBC 7.1, RBC 4.33 L, Hgb 12.9 L, Hct 38.7 L, MCV 89.4, MCH 29.8, MCHC 33.3, RDW Std Deviation 43.6, RDW Coeff of Brock 13.2, Plt Count 163, MPV 9.4 10/25/23 06:29: POC Glucose 126 H 10/25/23 06:37: Sodium 136, Potassium 3.4 L, Chloride 104, Carbon Dioxide 27.0, Anion Gap 5, BUN 16, Creatinine 1.01, Estim Creat Clear Calc 80.33, Est GFR (MDRD) Af Amer 94, Est GFR (MDRD) Non-Af 77, BUN/Creatinine Ratio 15.8, Glucose 129 H, Calcium 8.6 Micro: Microbiology 10/02/23 12:20 Swab (Method) Nasal Screen MRSA/MSSA - Final Radiography Diagnostic Testing: Radiology Impression Knee X-Ray 10/24/23 11:07 IMPRESSION: Status post knee arthroplasty. Electronically Signed: Hebert Carrasco MD at 12:07 EDT , Physical Exam Narrative Vital signs stable and afebrile. CPAP overnight. SCDs and JAY hose in place bilaterally Patient is able to plantarflex and dorsiflex actively. Sensation is intact to light touch to saphenous, sural, superficial and deep peroneal, and tibial distribution. Dressings are clean dry and intact. Negative Homans bilaterally, negative signs and symptoms of DVT. Const alert, oriented x3 and no apparent distress Assessment & Plan Assessment/Plan (1) Status post total right knee replacement: PLAN: 1. S/P robotic assisted right total knee arthroplasty POD #1 2. Continue Pain Medications: Tylenol, meloxicam, oxycodone. Do not take any other nonsteroidal anti-inflammatories while using meloxicam/Mobic. 3. DVT Prophylaxis: Take 81 mg aspirin twice daily for 4 weeks postoperatively for DVT prophylaxis. Patient denies past history of DVT or pulmonary embolism. 4. PT/OT: Weightbearing as tolerated with walker. Patient did well with physical therapy this morning. 5. H & H: 12.9/38.7, asymptomatic. Labs have been reviewed and stable. No reason for further treatment. 6. Currently on doxycycline for 2 weeks postoperatively due to positive staph screening and elevated A1c greater than 7.0. I discussed with the patient potential side effects of doxycycline including sensitivity to the sunlight and increased risk of skin burn. Recommend patient take appropriate precautions. Also recommend patient to take probiotic while on the antibiotic. Patient voiced understanding agreement. 7. Continue postoperative medical management per medicine 8. Encouraged Incentive Spirometry 9. Disposition: Patient has done well today with physical therapy, cleared by medicine, and pain has been adequately controlled. Patient would like his prescriptions E scribed to [facility]. He has outpatient physical therapy established. He will follow-up per postoperative instructions. Upon discharge she will contact her office with any concerns or questions. All above medications were discussed in great detail. All questions were answered. I have reviewed the [place] Automated Rx Reporting System (OARRS) report for this patient for refill pattern and other prescriber involvement as part of the appropriate surveillance for the provision of acute and chronic controlled medications. The report was requested and reviewed on the date of this entry and was considered in the prescribing process. This dictation was created using voice recognition software. Phonetic and/or grammatical errors may exist.
--- NOTE | 2023-10-25 10:22 | PCM.DC ---
Discharge Instructions Diet Discharge Diet: No restrictions Activity Discharge Activity: May Not Drive (No driving for 6 weeks postoperatively. Must also be off all narcotics and able to walk 100 feet without the use of cane or walker.) May shower in (days): 1 (Please turn dressing away from water. Okay to get wet as long as dressing is intact to skin.) Ice area for (Minutes): 20 (Every 1-2 hours while awake[address] Please place barrier between the skin and ice pack.) Weight Bearing Status: Weight bearing as tolerated Keep extremity elevated above heart level: Operative Extremity Dressing / Incision Call your doctor if your incision/area has: Continuous Slow Oozing, Sudden Increased Bleeding, Increased Pain/ Swelling, Increased Redness and Foul Smelling Discharge Call your doctor if you observe: Fever of 101 or Higher, Coldness, Increased Pain, Numbness or Tingling, Change in Color, Shortness of breath, Chest pain, Calf discomfort and Uncontrolled pain Remove Dressing in: 4 days (Okay to remove dressing on October 29, 2023) Additional Dressing/Incision Instructions:: Follow [facility] Post-op Instructions. Once postoperative dressing has been removed only use gentle soap and water over the incision. Do not use any ointments, Neosporin, salves, alcohol pads over the incision for 6 weeks postoperatively. Do not submerge underwater for 6 weeks postoperatively. Continue with JAY hose/elastic stockings for 2 weeks postoperatively. May remove at nighttime but needs to be placed back on the leg during the day. Do NOT use alcohol with narcotic pain medication. Do NOT make important decisions while taking narcotic medication. If you have problems with taking your medication (rash, itching, nausea, etc.) call the office at once. Follow Up Care Test Results: Test results from this visit will be discussed in further detail at your follow-up appointment, if applicable. Discharge Plan Admission Admit Date/Time: 10/24/23 07:04 Attending Provider: Bradford Guzman Primary Care Provider: Martinez Kent Consulting Providers: Everett Saab Discharge Orders/Prescriptions Prescriptions: New acetaminophen 500 mg Tablet 1,000 mg PO Q8 14 Days Qty: 84 0RF Rx Instructions: Do not take more than 3000 mg Tylenol in a 24-hour period. doxycycline monohydrate 100 mg Capsule 100 mg PO BID 14 Days Qty: 28 0RF Rx Instructions: Take for 2 weeks postoperatively aspirin 81 mg Tablet,Chewable 81 mg PO BID 30 Days Qty: 60 0RF Rx Instructions: Take 81 mg aspirin twice daily for 4 weeks postoperatively for DVT prophylaxis. Patient denies past history of DVT or pulmonary embolism. meloxicam 7.5 mg Tablet 7.5 mg PO BID 30 Days Qty: 60 0RF Rx Instructions: Do not take any other nonsteroidal anti-inflammatories while using meloxicam/Mobic. oxycodone 5 mg Tablet 5 - 10 mg PO Q4H PRN PRN (Reason: Pain Score 4-10) 7 Days Qty: 42 0RF sennosides-docusate sodium [Stool Softener-Stimulant Laxat] 8.6-50 mg Tablet 2 tab PO BID 3 Days Qty: 12 0RF Rx Instructions: Take until first bowel movement, then as needed Continued metformin 500 MG tablet 500 mg PO BID carvedilol 12.5 MG tablet 25 mg PO BID multivitamin with minerals 1 EACH tablet 1 ea PO DAILY amlodipine-benazepril 1 EACH capsule 1 ea PO DAILY hydrochlorothiazide 12.5 MG tablet 50 mg PO DAILY magnesium oxide 500 MG capsule 250 mg PO DAILY potassium gluconate 99 MG tablet 99 mg PO DAILY cyanocobalamin (vitamin B-12) 2,500 MCG tablet 3,000 mcg PO DAILY omeprazole 20 mg capsule,delayed release(DR/EC) 20 mg PO DAILY Quercetin Complex 500-250-33 mg capsule 1 cap PO DAILY cholecalciferol (vitamin D3) [Vitamin D3] 50 mcg (2,000 unit) tablet 50 mcg PO DAILY calcium carbonate 600 mg calcium (1,500 mg) tablet 600 mg PO DAILY Other Ambulatory Orders: 12 Lead EKG (Routine) Timeframe: 20231002 Location: None Selected Ordered By: Dr. Bradford Guzman Referrals / Follow Up: Physical,Therapy [Other] - 10/29/23 1:30 pm Martinez Kent MD [Primary Care Provider] - Luis Armando Nichole PA-C [Med Staff - [facility]] - 11/08/23 3:45 pm Disposition Disposition (needs filled in before D/C Order can be placed): Home, Self Care
[2023-10-25] MEDS: oxyCODONE 5 MG Tablet PO (10:58)
[2023-10-25] MEDS: Insulin Lispro 100 UNIT/ML INSULN.PEN SC (11:03)
--- NOTE | 2023-10-25 11:16 | CASEMGMT ---
KRISTI LINDQUIST Assessment: Face to Face with pt for initial transition planning/care coordination assessment. KRISTI LINDQUIST introduced self and role at [facility], pt voices understanding and consents to assessment. Pt is A&O x4 and answers all questions appropriately at this time. Pt sitting up in chair in no distress with at bedside. Care providers, pharmacy, and demographics verified/updated. Admitting Dx: TKA PCP:[facility] Specialists:indio Guzman; kymberly Willard Preferred Pharmacy: [facility] Retail Insurance: MMCR, MMO Prescription Benefit: yes LNOK: Mary Kate Martino, Living Arrangements: Pt lives with in a two story home with 1 step to enter. Pt reports he was I in ADL's prior to surgery and denies concerns at home. Pt is able to assist as needed. Transportation: Pt drives self and denies concerns with transportation. Pt to transport pt until he can drive again. DME:[facility], [employer] with sufficient supplies, cane, raised toilet seat- dont use; toilet side rails HHC/SNF: Pt denies hx of Pt states no concerns with going home at time of dc. Pt has outpt therapy set up for Sunday at [facility]. Pt states no further concerns/needs. CM to follow. Advised pt to ask CM if any further question/concerns/needs arise, voices understanding. Pt Goal: Home with outpt therapy already set up Plan: Home with outpt therapy already set up Suhas BERRY CM
[2023-10-25 11:38] LABS: Bedside Glucose 159 mg/dL (74-106)
[2023-10-25] MEDS: Doxycycline 100 MG CAPSULE PO (12:37)
--- NOTE | 2023-10-25 13:21 | PCM.PN.HOSP ---
Reason for Visit Reason for Visit: Diagnoses Type 2 diabetes mellitus without complications (10/24/23) Encounter for other preprocedural examination (10/24/23) Presence of right artificial knee joint (10/24/23) Presence of left artificial knee joint (10/24/23) Subjective Subjective No acute events overnight. Patient seen at bedside this morning, orthopedic surgery PA also present at bedside. Patient doing well this morning, has minimal right knee pain. Had bowel movement yesterday evening and has been tolerating food without issue. Hoping to go home today. No other acute concerns. Objective Data Objective Data Vital Signs: Vital Signs Temp Pulse Resp BP Pulse Ox O2 Del Method O2 Flow Rate 98.1 F 54 L 16 122/57 H 97 Room Air 2 10/25/23 11:24 10/25/23 11:24 10/25/23 11:24 10/25/23 11:24 10/25/23 11:24 10/25/23 11:24 10/24/23 20:04 Oxygen Flow Rate (L/min) 2 Oxygen Delivery Method Room Air Weight: 112.491 kg Body Mass Index (BMI) 38.8 Intake & Output: Intake and Output for Last 24 Hours 10/23/23 10/24/23 10/25/23 23:59 23:59 23:59 Intake Total 2298.67 / 2298.67 233.33 / 233.33 Balance 2298.67 / 2298.67 233.33 / 233.33 Lab / Micro Data 10/25/23 06:27 10/25/23 06:37 Labs: Laboratory Results - last 24 hr 10/24/23 15:38: POC Glucose 123 H 10/24/23 21:32: POC Glucose 135 H 10/25/23 06:27: WBC 7.1, RBC 4.33 L, Hgb 12.9 L, Hct 38.7 L, MCV 89.4, MCH 29.8, MCHC 33.3, RDW Std Deviation 43.6, RDW Coeff of Brock 13.2, Plt Count 163, MPV 9.4 10/25/23 06:29: POC Glucose 126 H 10/25/23 06:37: Sodium 136, Potassium 3.4 L, Chloride 104, Carbon Dioxide 27.0, Anion Gap 5, BUN 16, Creatinine 1.01, Estim Creat Clear Calc 80.33, Est GFR (MDRD) Af Amer 94, Est GFR (MDRD) Non-Af 77, BUN/Creatinine Ratio 15.8, Glucose 129 H, Calcium 8.6 10/25/23 11:01: POC Glucose 159 H Micro: Microbiology 10/02/23 12:20 Swab (Method) Nasal Screen MRSA/MSSA - Final Physical Exam Const alert, oriented x3 and no apparent distress Constitutional Narrative: Pleasant elderly male, obese, sitting up comfortably in bed, conversing normally, in no acute distress. General Appearance: cooperative and comfortable HEENT normocephalic, head/scalp atraumatic, hearing grossly normal bilaterally, nasal mucous membranes and turbinates normal and moist oral mucous membranes Eyes PERRL, EOMs intact bilaterally and conjunctivae normal Neck full ROM Chest inspection of chest normal Resp normal respiratory effort, normal air movement, no use of accessory muscles and clear to auscultation bilaterally Cardio regular rate, regular rhythm, no murmurs and peripheral pulses 2+ throughout GI normal to inspection, nondistended, normoactive bowel sounds, soft to palpation, non-tender and non-distended Back/Spine normal ROM Extremity Extremity Narrative: Right knee with large brace in place. No gross abnormalities on exam. Skin no rashes or lesions noted Neuro moves all extremities and no focal motor deficits Speech: speech normal Psych mental status grossly normal Assessment & Plan Assessment/Plan (1) Diabetes: (2) Status post total left knee replacement: PLAN: Plan Patient is a 73-year-old male who presented to [facility] on 10/24/[facility]23 for planned right knee surgery. Medicine consulted postoperatively for medical management. 1. Right knee primary osteoarthritis ? Orthopedics primary. S/p right minimally invasive robotic total knee replacement on 10/23. No intraoperative complications noted. CBC and BMP on hospital day 2 with no issues. Further recommendations per orthopedics. 2. Type 2 diabetes mellitus ? Home regimen of metformin 500 mg twice daily. Last A1c 7.2% on 10/02/2023. Treat with sliding scale insulin with meals while inpatient, okay to resume home regimen at discharge. 3. Hypertension ? Home regimen of Coreg 25 mg twice daily, hydrochlorothiazide 50 mg daily, amlodipine 5 mg daily, lisinopril 40 mg daily. Postoperative blood pressures mildly elevated, stable. Continue home regimen as above. 4. GERD ? Stable. Continue home PPI. 5. Obesity ? BMI 38 on admit. Complicates hospital course, recovery and prognosis. 6. History of left total knee replacement ? Per patient, had good recovery from this procedure, no current issues with left knee. DVT prophylaxis: Per orthopedics Total clinical time spent by myself addressing the patient's medical issues, reviewing all the data, and collaborating with patient's care team: 25 minutes. Charges/Coding Visit Charges Inpatient E&M: 71162 [facility] L1
== END 2023-10-25 13:15 | disposition home or self-care (01) ==
LOC: SDC 11:01 → MS3 11:01
PROVIDERS: Admitting Provider Specialist; PCP Family Medicine; Referring Provider Specialist; Visit Provider Specialist
PROC: 0SRC0JZ Replacement of Right Knee Joint with Synthetic Substitute, Open Approach (ICD-10-PCS; CPT 27447; principal; 2023-10-24 08:15)
DX: M17.11 Unilateral primary osteoarthritis, right knee (principal); E11.9 Type 2 diabetes mellitus without complications; G47.30 Sleep apnea, unspecified; Z79.84 Long term (current) use of oral hypoglycemic drugs; E66.9 Obesity, unspecified; Z68.38 Body mass index [BMI] 38.0-38.9, adult; M21.161 Varus deformity, not elsewhere classified, right knee; I10 Essential (primary) hypertension; E78.00 Pure hypercholesterolemia, unspecified; K21.9 Gastro-esophageal reflux disease without esophagitis; Z79.899 Other long term (current) drug therapy; Z79.82 Long term (current) use of aspirin
CPT/HCPCS: 27447; S2900; 01402; 36415; 73560; 80048; 82040; 82962; 83036; 83735; 85025; 85027; 87077; 87081; 88305; 88311; 93005; 94668; 94762; 96361; 96365; 96366; 96375; 97162; 97166; 97530; 97535; 99221; 99252; C1776; J7120; A4216; G0378; G0463; J3475